=== PATIENT | male | born 1940 | race Caucasian/White ===

== ENCOUNTER 2016-05-13 12:30 | Inpatient (IN) ==
[2016-05-13] MEDS ORDERED: 0.9 % SODIUM CHLORIDE 1,000 ML IV ONE (12:59)
[2016-05-13] MEDS: LABETALOL 5 MG/ML ML IV ONE ×2 (13:06→13:08)
[2016-05-13] MEDS ORDERED: LABETALOL HCL 20 MG/4 ML SYRINGE IV ONE (13:12)
--- NOTE | 2016-05-13 13:26 | XRay Report ---
CLINICAL INFORMATION: Dyspnea TECHNIQUE: Semiupright AP portable chest x-ray COMPARISON: Previous chest x-ray dated 03/29/2015 FINDINGS: No change in left transvenous pacemaker lead. Inspiration is suboptimal. There is cardiomegaly. Vascularity is prominent without definite pulmonary edema or focal infiltrate. Upright PA and lateral chest x-ray with better inspiration is recommended when clinically appropriate. IMPRESSION: 1. Cardiomegaly 2. No focal parenchymal infiltrates. No pulmonary edema. Interpreted and Authenticated by: Favian Cuenca 05/13/16
[2016-05-13 13:36] LABS: Basophils # (Auto) 0.1 K/mcL (0.0-0.3); Basophils % (Auto) 0.4 % (0.0-2.0); Eosinophils # (Auto) 0 K/mcL (0.0-0.7); Eosinophils % (Auto) 0.2 % (0.0-7.0); Granulocytes % (Auto) 90.4 % (38.0-78.0); Lymphocytes # (Auto) 0.6 K/mcL (1.5-4.8); Lymphocytes % (Auto) 4.5 % (15.5-49.0); Mean Cell Volume 87.2 fL (80.0-100.0); Mean Corpuscular HGB Conc 33.1 g/dL (31.0-36.0); Mean Corpuscular Hemoglobin 28.8 pg (26.0-34.0); Monocytes # (Auto) 0.6 K/mcL (0.1-0.9); Monocytes % (Auto) 4.5 % (1.0-9.0); Platelet Count 203 K/mcL (140-440); RBC 5.55 M/mcL (4.50-5.90); Red Cell Distribution Width 14.4 % (11.5-14.5)
[2016-05-13 13:38] LABS: Appearance,Urine CLEAR; Bacteria,Urine 0 /hpf (0); Bilirubin,Urine NEG (NEG); Color,Urine STRAW; Glucose,Urine (UA) NEGATIVE (NEG); Leukocyte Esterase,Urine NEG /uL (NEG); Mucus,Urine FEW /hpf (0); Nitrate,Urine NEG (NEG); Protein,Urine 30 mg/dL (NEG); Urine Blood 0.03 mg/dL (<0.03); Urine RBC 4 /hpf (0-1); Urine Squamous Epithelial Cell 0 /hpf (0-4); Urine WBC 1 /hpf (0-4); Urobilinogen,Urine NEG (NEG)
[2016-05-13 13:52] LABS: ALT/SGPT 24 U/l (0-40); Albumin 4.5 gm/dL (3.2-5.2); Albumin/Globulin Ratio 1.3 (1.0-2.3); Alkaline Phosphatase 80 U/L (39-117); Blood Urea Nitrogen 14 mg/dl (8-23)
[2016-05-13] MEDS ORDERED: LABETALOL 5 MG/ML ML IV ONE (14:30)
[2016-05-13] MEDS ORDERED: DILTIAZEM 25 MG/5 ML VIAL IV ONE (14:46)
[2016-05-13] MEDS ORDERED: traMADol 50 MG TABLET PO PRN ×2 (16:21→17:36)
[2016-05-13] MEDS ORDERED: HYDROCODONE/APAP 7.5/325MG TABLET PO PRN ×3 (16:21→18:23)
--- NOTE | 2016-05-13 16:24 | Internal Med History&Physical ---
Medical - H&P: HPI Patient information: Note initiated : 05/13/16 at 4:24 pm Service Date, if different from initiated Date: [] Patient: Jessica Lemus a 75 y/o M admitted on for Weakness, vomiting. Chief Complaint: [] History of present illness: Mr. Lemus is a 75 year old male with a history of sleep apnea, and possible COPD, as well as diabetes and atrial fibrillation. He is brought here today by his son and daughter, who note that he has not been doing well for the last couple of days. His daughter reports that he's been complaining of dizziness and weakness for the last couple of days. He has felt feverish. Today he was able to get out of bed and get to a chair, but then was too weak to get out of the chair. It took 2 of them to try to lift him and practically drag him out of the car to bring him here. He has had decreased oral intake for the last couple of days, and did vomit just once this morning. He has been very somnolent today, and is not giving a very reliable history. ER evaluation did show a white blood cell count of 13,000 and mildly elevated blood glucose. Influenza screen is negative. He is febrile and tachycardic, and tachypneic, and does meet SIRS criteria. The patient is quite drowsy, but does wake up enough to answer questions, and then falls back asleep. He believes he has had a fever and chills, and whole body aching. He is not sure if he has been dizzy that has definitely been feeling weak. He otherwise denies headaches, and new eye or ear symptoms, sore throat. He has had a bit of a cough for a day or 2 and it sounds like that is nonproductive. He thinks he may be mildly short of breath, but is unable to clarify whether that is more than his usual shortness of breath. His daughter thinks he was recently diagnosed with COPD, but neither of them are sure. He does use some kind of inhaler at home, which we believe is Symbicort. He denies chest pain or palpitations, abdominal pain. He had nausea and vomiting once, and not since then. He denies constipation or diarrhea, or dysuria. Medical History Dilated aortic root (Chronic) Constipation (Acute) Hypertension (Chronic) Compression fracture of body of thoracic vertebra (Acute) Tennis elbow (Chronic) Lateral epicondyle Tachycardia (Chronic) Sleep apnea (Chronic) on CPAP Sick sinus syndrome (Chronic) (01/28/2014 Dr Tan) Right bundle branch block (Chronic) Obesity (Chronic) Joint pain (Chronic) Right ankle Hypertension, essential (Chronic) not well controlled, labile on current meds. Change and review in one month Intestinal hernia (Chronic) Abdominal hernia Hematuria (Chronic) Exostosis (Chronic) Right, bone spur Diabetes mellitus, type II (Chronic) History of colonic polyps (Chronic) Cardiomegaly (Chronic) Calculus of bile duct without cholangitis or cholecystitis with obstruction ( Chronic) Bradycardia (Chronic) Atrial fibrillation (Chronic 05/25/11) Acute appendicitis (Resolved) Given Zosyn, scheduled for OR Acute delirium (Resolved) Acute renal failure (Resolved) Ileus following gastrointestinal surgery (Resolved) Rotator cuff sprain (Resolved) Sprains/strains Sepsis (Resolved) Surgical History History of appendectomy (Resolved 12/15/14) History of cardioversion (Resolved) History of hernia repair (Resolved) History of orthopedic surgery (Resolved) Right leg fracture repair History of permanent cardiac pacemaker placement (Resolved 01/02/13) Permanent pacemaker implant, ventricular lead implant History of repair of right rotator cuff (Resolved) History of shoulder surgery (Resolved) Left History of surgery (Resolved) Right ankle Medication List budesonide 180 mcg/actuation 360 mcg (2 x 180 mcg/actuation) Inhalation BID carvedilol the dose appears to be 12.5 twice a day [CPAP machine ] diltiazem CD 240 mg PO BID patient's reports this is just once a day furosemide PO 90 days hydrochlorothiazide 25 mg (2 x 12.5 mg) PO QDAY patient's reports he no longer takes this, as it made him feel bad- hydrocodone-acetaminophen 7.5-325 mg 1 tab PO Q6H 30 days PRN levalbuterol HFA 45 mcg/actuation 45 mcg Inhalation Q4H PRN lisinopril 30 mg PO BID rivaroxaban 20 mg PO QDAY with evening meal; administer with evening meal tramadol 50 mg PO Q4H PRN Allergies/Adverse Reactions amiodarone Allergy Unknown Family History Unknown Diabetes mellitus Sister Parkinson's Disease, Onset Age: 64 Social History household members: spouse, other housing: house marital status: smoking status: Never smoker alcohol intake frequency: does not drink Medical - H&P: Meds Home Medications Medication Instructions Recorded Confirmed Type rivaroxaban 20 mg tablet 20 mg PO .COMPLEX tab 12/14/14 05/13/16 History Diltiazem HCl [Cartia Xt] 240 mg PO HS 12/15/14 05/13/16 History Lisinopril [Zestril] 30 mg PO BID 12/15/14 05/13/16 History carvedilol 12.5 mg tablet 12.5 mg PO DAILY 90 Days 10/21/15 05/13/16 History furosemide 20 mg tablet 20 mg PO DAILY 90 Days 10/21/15 05/13/16 History Acetaminophen [Tylenol] 1,000 mg PO Q4-6HP PRN 05/13/16 05/13/16 History Allergies Allergy/AdvReac Type Severity Reaction Status Date / Time amiodarone AdvReac Unknown Unknown Verified 05/13/16 12:33 Medical - H&P: Exam - Constitutional Vitals: Temp Pulse Resp BP Pulse Ox 100.1 F H 88 36 H 180/90 92 05/13/16 14:53 05/13/16 14:30 05/13/16 14:30 05/13/16 14:30 05/13/16 14:30 Exam: on exam, he is a well-developed well-nourished appearing elderly man, who mostly sleeps through the first part of the interview. Head: Normocephalic, atraumatic. Eyes: PERRLA, EOMI, anicteric. Ears: TMs and canals are clear. Pharynx: Mucosa somewhat dry. He wasn't able to open his mouth very wide, so posterior pharynx was hard to see. Neck:Appears supple, without lymphadenopathy, JVD, thyromegaly, bruits. Cardiac exam: Appears mostly regular, with normal S1 and S2, without murmurs, rubs, gallops. EKG, however,indicates A. fib. Lungs:There are soft crackles and wheezes at both bases, and lungs are fairly clear above. There is no accessory muscle use, although the patient is tachypneic occasionally. Abdomen; Is obese, but soft. There is a little bit of tenderness in the right upper quadrant area, but no guarding or rebound. Bowel sounds are normoactive. Extremities: Show some stasis dermatitis changes, but minimal edema. There is no cyanosis or clubbing. Neurologic:The patient is quite somnolent, but does arouse to verbal and physical stimulation. he is able to answer most questions appropriately, and is able to follow commands. Motor exam is grossly nonfocal. Medical - H&P: Reslt - Labs CBC & Chem 7: 05/13/16 13:01 05/13/16 13:00 Labs: Short CBC 05/13/16 Range/Units 13:01 WBC 13.2 H (4.5-11.0) K/mcL Hgb 16.0 (13.5-16.5) g/dL Hct 48.4 (41.0-55.0) % Plt Count 203 (140-440) K/mcL BMP 05/13/16 13:00 Sodium 136 Potassium 3.3 Chloride 98 Carbon Dioxide 23 BUN 14 Creatinine 0.9 Glucose 166 H Calcium 8.9 Liver Function 05/13/16 Range/Units 13:00 Total Bilirubin 1.1 H (0.0-1.0) mg/dL AST 25 (0-37) U/l ALT 24 (0-40) U/l Alkaline Phosphatase 80 (39-117) U/L Albumin 4.5 (3.2-5.2) gm/dL Urine 05/13/16 Range/Units 12:58 Urine Color Straw Urine Appearance Clear Urine pH 7.0 (5.0-9.0) Ur Specific [place] 1.010 (1.000-1.035) Urine Protein 30 A (NEG) mg/dL Urine Glucose (UA) Negative (NEG) mg/dL urinalysis shows a few red blood cells, but negative leukocyte esterase and negative nitrites. lactic acid is normal at 1.2 cBC differential shows 12,000 absolute neutrophil count, with depressed absolute lymphocyte count of 600 Chest x-ray shows suboptimal inspiration. There is some vascular prominence but no definite infiltrate. Although the ER M.D. felt that there may be some hazinessin the right lower lung douglas. ABG on room air: PH 7.45, CO2 of 37, PO2 of 61, O2 saturation 92% Medical - H&P: A/P (1) Fever Current visit: Yes Status: Acute (2) SIRS (systemic inflammatory response syndrome) Current visit: Yes Status: Acute (3) Atrial fibrillation Current visit: No Status: Chronic (4) Diabetes mellitus, type II Current visit: No Status: Chronic (5) Hypertension, essential Problem details: not well controlled, labile on current meds. Change and review in one month Current visit: No Status: Chronic (6) Sleep apnea Problem details: on CPAP Current visit: No Status: Chronic - Narrative A/P Narrative: #1. Infectious disease,SIRS syndrome, and actually does meet sepsis criteria, with suspected infection, fever,tachycardia, leukocytosis tachypnea and altered mental status. -Lung exam is abnormal, and could represent early pneumonia. We do not have any other source at this time. blood gas does indicate a mild respiratory alkalosis, with mild hypoxemia. -the patient has been admitted to telemetry for close observation. -Blood cultures have been obtained. Sputum culture is ordered. He'll be started on empiric antibiotics with Zithromax and Rocephin. add vancomycin for additional gram-positive coverage. -Just to be complete, I will also order d-dimer, BNP, troponin, EKG, as the cause for his hypoxemia is not certain. -IV fluid resuscitation. -Bronchodilators oxygen, pulmonary toilet. #2. History of sleep apnea. -Continue CPAP #3. Type 2 diabetes. -cover with sliding scale insulin. #4. Recent history of compression fracture. Continue tramadol, plus other when necessary pain medications. #5. Cardiac. -History of chronic atrial fibrillation.he is maintained on rivaroxaban. -his primary care physician's notes indicate that he had a cardiac workup recently, and no cause was found for his dyspnea. He apparently does not have CHF but is maintained on hydrochlorothiazide, Lasix, Coreg, lisinopril, diltiazem. #6.pulmonary.-Patient apparently has been compared complaining of sensation of dyspnea for the last year or so. Cardiac workup was unrevealing. he had a plain chest CT in August 2015 that was essentially benign. He did have CT angiogram back in March 2015, that was also fairly unrevealing. There was a small lung nodule, that was stable at 6 month follow-up. -he also has a history of a dilated aortic root. Given his unexplained top hypoxemia and subjective dyspnea, I think I may do another CT angiogram, to try to confirm or rule out pneumonia as well as PE. #7. CODE STATUS: His daughter did call his , who is his POA. The indicate he wishes a DNR status. #8. DVT prophylaxis: rivaroxaban should cover this. #9. Neurologic. -The patientis somnolent and somewhat confused. He likely has a medical delirium. We will have speech evaluate him just to be sure he has a safe swallow. his visit took approximately 75 minutes, to review the patient's records, interview and examine him, review his history and then plan of care with his daughter, and write orders.
[2016-05-13] MEDS ORDERED: RIVAROXABAN 20 MG TABLET PO SCH ×2 (16:30→21:00)
[2016-05-13] MEDS: INSULIN LISPRO 1 UNIT/0.01 ML UNIT SQ SCH ×2 (17:30→21:50)
[2016-05-13] MEDS ORDERED: ONDANSETRON 4 MG/2 ML VIAL IV PRN (17:36)
[2016-05-13] MEDS ORDERED: DEXTROSE 50% 50 ML VIAL IV PRN (17:36)
[2016-05-13] MEDS ORDERED: NALOXONE HCL 0.4 MG/ML VIAL IV PRN (17:36)
[2016-05-13] MEDS ORDERED: ALBUTEROL SULFATE 2.5 MG/3 ML NEBULIZER NEB PRN (17:36)
[2016-05-13] MEDS ORDERED: POTASSIUM CHLORIDE 20 MEQ/10 ML VIAL IV ONE (18:31)
[2016-05-13] MEDS ORDERED: POTASSIUM ACETATE 2 MEQ/ML ML IV ONE (18:31)
[2016-05-13] MEDS ORDERED: cefTRIAXone 1 GM VIAL ONE (18:32)
[2016-05-13] MEDS ORDERED: VANCOMYCIN PER PHARMACY IV ONE (19:01)
[2016-05-13] MEDS: AZITHROMYCIN 500 MG in DEXTROSE 5% IN WATER 250 ML IV SCH (19:45)
[2016-05-13] MEDS: cefTRIAXone 1 GM in DEXTROSE 5% IN WATER 50 ML IV SCH (19:51)
[2016-05-13] MEDS: IPRATROPIUM/ALBUTEROL 3 ML AMPUL.NEB NEB SCH (19:55)
[2016-05-13] MEDS: POTASSIUM CHLORIDE 30 MEQ in 0.45 % SODIUM CHLORIDE 1,000 ML IV SCH (20:08)
[2016-05-13] MEDS ORDERED: LISINOPRIL 30 MG PO SCH (21:00)
[2016-05-13] MEDS ORDERED: VANCOMYCIN 1,500 MG in 0.9 % SODIUM CHLORIDE 500 ML IV ONE (21:00)
[2016-05-13] MEDS ORDERED: DILTIAZEM 240 MG CAP.XL.24H PO SCH ×2 (21:00)
[2016-05-13] MEDS: ACETAMINOPHEN 325 MG TABLET PO PRN (21:45)
[2016-05-13] MEDS: LISINOPRIL 10 MG TABLET PO SCH (21:45)
[2016-05-13] MEDS ORDERED: VANCOMYCIN 500 MG VIAL ONE (22:00)
[2016-05-14] MEDS: IPRATROPIUM/ALBUTEROL 3 ML AMPUL.NEB NEB SCH ×4 (01:16→19:31)
[2016-05-14] MEDS: POTASSIUM CHLORIDE 30 MEQ in 0.45 % SODIUM CHLORIDE 1,000 ML IV SCH ×3 (04:15→19:27)
[2016-05-14] MEDS: ACETAMINOPHEN 325 MG TABLET PO PRN (04:29)
[2016-05-14 05:42] LABS: Basophils # (Auto) 0 K/mcL (0.0-0.3); Basophils % (Auto) 0.1 % (0.0-2.0); Eosinophils # (Auto) 0 K/mcL (0.0-0.7); Eosinophils % (Auto) 0 % (0.0-7.0); Granulocytes % (Auto) 90.1 % (38.0-78.0); Lymphocytes # (Auto) 0.8 K/mcL (1.5-4.8); Mean Cell Volume 87.9 fL (80.0-100.0); Mean Corpuscular HGB Conc 33.4 g/dL (31.0-36.0); Mean Corpuscular Hemoglobin 29.3 pg (26.0-34.0); Monocytes # (Auto) 0.5 K/mcL (0.1-0.9); Monocytes % (Auto) 3.8 % (1.0-9.0); Platelet Count 193 K/mcL (140-440); RBC 4.96 M/mcL (4.50-5.90); Red Cell Distribution Width 14.6 % (11.5-14.5)
[2016-05-14 06:39] LABS: ALT/SGPT 18 U/l (0-40); Albumin 3.8 gm/dL (3.2-5.2); Albumin/Globulin Ratio 1.3 (1.0-2.3); Alkaline Phosphatase 86 U/L (39-117); Bilirubin,Direct 0.2 mg/dL (0.0-0.3); Blood Urea Nitrogen 14 mg/dl (8-23); Gamma Glutamyl Transpeptidase 44 U/L (8-61); Phosphorous 2.4 mg/dL (2.7-4.5); Uric Acid 4.6 mg/dL (2.5-8.0)
[2016-05-14] MEDS ORDERED: POTASSIUM CHLORIDE 20 MEQ/10 ML VIAL IV ONE (07:05)
--- NOTE | 2016-05-14 07:59 | Emergency Department Note ---
Weakness HPI - General Chief complaint: Weakness Stated complaint: Weakness, vomiting Time Seen by Provider: 05/13/16 12:53 Source: family Mode of arrival: wheelchair Limitations: no limitations - History of Present Illness HPI Narrative: The patient is a 75-year-old male who presents today with his daughter and son with complaint of weakness. He lives alone with his and the details of the last couple days are not clear but he reportedly hasn't been feeling well. There was some concern about dizziness for the last couple of days. Today he got up and out of bed and sinus chair but then was unable to move from there. He did vomit once today approximately 30 Rucker of bilious emesis. His temperature at home was 100.5 Fahrenheit. Endorses feeling weak does not endorsing any other kind of pain. Has had nothing to eat this morning. Mild cough the last couple of days. He has a history of hypertension and is on furosemide, carvedilol, lisinopril and diltiazem. He also has chronic atrial fibrillation and is on the diltiazem for rate control and Xarelto for anticoagulation. He does have sleep apnea and has a CPAP machine at home. He is a type II diabetic but not on insulin. They recently thought he had COPD and he has a prescription for budesonideformoterol. MD Complaint: generalized weakness Onset (ago): day(s) (2-3) Duration: constant Location: generalized - Related Data Home Medications Medication Instructions Recorded Confirmed rivaroxaban 20 mg tablet 20 mg PO .COMPLEX tab 12/14/14 05/13/16 Diltiazem HCl [Cartia Xt] 240 mg PO HS 12/15/14 05/13/16 Lisinopril [Zestril] 30 mg PO BID 12/15/14 05/13/16 carvedilol 12.5 mg tablet 12.5 mg PO DAILY 90 Days 10/21/15 05/13/16 furosemide 20 mg tablet 20 mg PO DAILY 90 Days 10/21/15 05/13/16 Acetaminophen [Tylenol] 1,000 mg PO Q4-6HP PRN 05/13/16 05/13/16 CPAP machine 12 cm HS 05/14/16 05/14/16 Previous Rx's Medication Instructions Recorded hydrochlorothiazide 12.5 mg capsule 25 mg PO QDAY #90 cap 10/01/15 tramadol 50 mg tablet 50 mg PO Q4H PRN #60 tab 12/08/15 budesonide-formoterol HFA 160 2 inh INHALATION Q12H #10.2 g 04/12/16 mcg-4.5 mcg/actuation aerosol inhaler Allergies Allergy/AdvReac Type Severity Reaction Status Date / Time amiodarone AdvReac Unknown Unknown Verified 05/13/16 12:33 Review of Systems All systems ED: reviewed and negative except as stated. Past Medical History - Past Medical History Attestation: Yes: The following information was validated with the patient. Medical history: Reports: atrial fibrillation, CVA Physical Exam - General Limitations: no limitations General appearance: other (not alert, very sleepy and has to be shaken to wake up. After he wakes, he quickly dozes back off) - Head Head exam: atraumatic, normocephalic - Neck Neck exam: Present: normal inspection - Chest Chest inspection: Present: normal inspection - Respiratory Respiratory exam: Present: other (bilatearl inspiratory rhonchi, no wheezes appreciated, shallow breaths) - Cardiovascular Cardiovascular exam: Present: normal rhythm, tachycardia - Abdominal Exam Abdominal exam: Present: soft, normal bowel sounds - Extremities Exam Extremities exam: Present: other (venous stasis bilateral lower extremity) - Neurological Exam Neurological exam: Present: other (not alert - follows a couple step commands but then falls back asleep) - Psychiatric Psychiatric exam: Present: other (difficult to assess mood as not responding normally) Course Vital Signs Temperature 100.5 F H 05/13/16 12:33 Temperature 99.1 F 05/13/16 17:36 Pulse Rate 81 05/14/16 02:00 Respiratory Rate 24 05/14/16 02:00 Blood Pressure 148/92 05/14/16 02:00 Pulse Oximetry (%) 95 05/14/16 02:00 Weakness - MDM Narrative Medical decision making narrative: The patient presented with a couple day history of weakness that has been rapidly progressed. He was minimally responsive when I saw him. Lab work was remarkable for mildly elevated white count. He was tachycardic and febrile here. He met Sirs criteria that we did not have a clear source for his infection. Chest x-ray was remarkable for what appeared to be COPD but no consolidation was appreciated. I discussed with the on-call hospitalist who agreed to evaluate the patient and then after evaluation graciously agreed to admit the patient. - Lab Data Lab results reviewed: Yes I reviewed the patient's lab results. Result diagrams: 05/14/16 04:06 05/14/16 04:06 Lab Results 05/13/16 05/13/16 05/13/16 Range/Units 12:58 13:00 13:01 WBC 13.2 H (4.5-11.0) K/mcL RBC 5.55 (4.50-5.90) M/mcL Hgb 16.0 (13.5-16.5) g/dL Hct 48.4 (41.0-55.0) % MCV 87.2 (80.0-100.0) fL MCH 28.8 (26.0-34.0) pg MCHC 33.1 (31.0-36.0) g/dL RDW 14.4 (11.5-14.5) % Plt Count 203 (140-440) K/mcL MPV 9.1 (7.4-10.4) fL Gran % 90.4 H (38.0-78.0) % Lymph % (Auto) 4.5 L (15.5-49.0) % [place] % (Auto) 4.5 (1.0-9.0) % Eos % (Auto) 0.2 (0.0-7.0) % Baso % (Auto) 0.4 (0.0-2.0) % Gran # 12.0 H (1.8-8.0) K/mcL Lymph # 0.6 L (1.5-4.8) K/mcL [place] # 0.6 (0.1-0.9) K/mcL Eos # 0 (0.0-0.7) K/mcL Baso # 0.1 (0.0-0.3) K/mcL VBG Lactic Acid (0.5-2.2) mmol/L Sodium 136 (133-145) mmol/L Potassium 3.3 (3.3-5.1) mmol/L Chloride 98 (96-108) mmol/L Carbon Dioxide 23 (22-30) mmol/L Anion Gap 15.0 (8-16) BUN 14 (8-23) mg/dl Creatinine 0.9 (0.7-1.2) mg/dl GFR Calculation 82 Glucose 166 H (70-105) mg/dL Calcium 8.9 (8.6-10.4) mg/dl Total Bilirubin 1.1 H (0.0-1.0) mg/dL AST 25 (0-37) U/l ALT 24 (0-40) U/l Alkaline Phosphatase 80 (39-117) U/L Total Protein 8.0 (5.9-8.4) gm/dL Albumin 4.5 (3.2-5.2) gm/dL Globulin 3.5 (2.2-3.7) gm/dL Albumin/Globulin Ratio 1.3 (1.0-2.3) Urine Color Straw Urine Appearance Clear Urine pH 7.0 (5.0-9.0) Ur Specific [place] 1.010 (1.000-1.035) Urine Protein 30 A (NEG) mg/dL Urine Glucose (UA) Negative (NEG) mg/dL Urine Ketones Neg (NEG) mg/dL Urine Occult Blood 0.03 A (<0.03) mg/dL Urine Nitrate Neg (NEG) Urine Bilirubin Neg (NEG) mg/dL Urine Urobilinogen Neg (NEG) mg/dL Ur Leukocyte Esterase Neg (NEG) /uL Urine RBC 4 H (0-1) /hpf Urine WBC 1 (0-4) /hpf Ur Squamous Epith Cells 0 (0-4) /hpf Urine Bacteria 0 (0) /hpf Urine Mucus Few (0) /hpf Ur Culture Indicated? No 05/13/16 Range/Units 14:59 WBC (4.5-11.0) K/mcL RBC (4.50-5.90) M/mcL Hgb (13.5-16.5) g/dL Hct (41.0-55.0) % MCV (80.0-100.0) fL MCH (26.0-34.0) pg MCHC (31.0-36.0) g/dL RDW (11.5-14.5) % Plt Count (140-440) K/mcL MPV (7.4-10.4) fL Gran % (38.0-78.0) % Lymph % (Auto) (15.5-49.0) % [place] % (Auto) (1.0-9.0) % Eos % (Auto) (0.0-7.0) % Baso % (Auto) (0.0-2.0) % Gran # (1.8-8.0) K/mcL Lymph # (1.5-4.8) K/mcL [place] # (0.1-0.9) K/mcL Eos # (0.0-0.7) K/mcL Baso # (0.0-0.3) K/mcL VBG Lactic Acid 1.2 (0.5-2.2) mmol/L Sodium (133-145) mmol/L Potassium (3.3-5.1) mmol/L Chloride (96-108) mmol/L Carbon Dioxide (22-30) mmol/L Anion Gap (8-16) BUN (8-23) mg/dl Creatinine (0.7-1.2) mg/dl GFR Calculation Glucose (70-105) mg/dL Calcium (8.6-10.4) mg/dl Total Bilirubin (0.0-1.0) mg/dL AST (0-37) U/l ALT (0-40) U/l Alkaline Phosphatase (39-117) U/L Total Protein (5.9-8.4) gm/dL Albumin (3.2-5.2) gm/dL Globulin (2.2-3.7) gm/dL Albumin/Globulin Ratio (1.0-2.3) Urine Color Urine Appearance Urine pH (5.0-9.0) Ur Specific [place] (1.000-1.035) Urine Protein (NEG) mg/dL Urine Glucose (UA) (NEG) mg/dL Urine Ketones (NEG) mg/dL Urine Occult Blood (<0.03) mg/dL Urine Nitrate (NEG) Urine Bilirubin (NEG) mg/dL Urine Urobilinogen (NEG) mg/dL Ur Leukocyte Esterase (NEG) /uL Urine RBC (0-1) /hpf Urine WBC (0-4) /hpf Ur Squamous Epith Cells (0-4) /hpf Urine Bacteria (0) /hpf Urine Mucus (0) /hpf Ur Culture Indicated? - Radiology Data Radiology results reviewed: Yes I reviewed the patient's radiology results. Disposition Clinical Impression: SIRS (systemic inflammatory response syndrome) Disposition: Xfer As Inpt ([facility]) Condition: Fair
[2016-05-14] MEDS: INSULIN LISPRO 1 UNIT/0.01 ML UNIT SQ SCH ×4 (08:21→20:20)
[2016-05-14] MEDS: VANCOMYCIN 1,500 MG in 0.9 % SODIUM CHLORIDE 500 ML IV SCH ×2 (08:31→20:21)
[2016-05-14] MEDS: LISINOPRIL 10 MG TABLET PO SCH ×2 (08:50→20:21)
[2016-05-14] MEDS: CARVEDILOL 12.5 MG TABLET PO SCH ×2 (08:50→20:21)
[2016-05-14] MEDS: FUROSEMIDE 20 MG TABLET PO SCH (08:50)
[2016-05-14] MEDS: HYDROCHLOROTHIAZIDE 12.5 MG CAPSULE PO SCH (08:50)
[2016-05-14] MEDS ORDERED: HYDROCHLOROTHIAZIDE 12.5 MG CAPSULE PO SCH (09:00)
[2016-05-14] MEDS ORDERED: FUROSEMIDE 20 MG TABLET PO SCH (09:00)
[2016-05-14] MEDS ORDERED: CARVEDILOL 12.5 MG TABLET PO SCH ×2 (09:00)
[2016-05-14] MEDS: AZITHROMYCIN 500 MG in DEXTROSE 5% IN WATER 250 ML IV SCH (12:10)
[2016-05-14] MEDS: 0.9 % SODIUM CHLORIDE 10 ML SYRINGE IV SCH ×2 (13:25→20:22)
[2016-05-14] MEDS: cefTRIAXone 1 GM in DEXTROSE 5% IN WATER 50 ML IV SCH (13:25)
--- NOTE | 2016-05-14 13:30 | Internal Med Progress Note ---
Medical - PN: Subj Patient information: Note initiated : 05/14/16 at 1:30 pm Service Date, if different from initiated Date: [] Patient: Jessica Lemus a 75 y/o M admitted on 05/13/16 for Weakness, vomiting. Chief Complaint: [] Interval history: Chris 2016:History of present illness: Mr. Lemus is a 75 year old male with a history of sleep apnea, and possible COPD, as well as diabetes and atrial fibrillation. He is brought here today by his son and daughter, who note that he has not been doing well for the last couple of days. His daughter reports that he's been complaining of dizziness and weakness for the last couple of days. He has felt feverish. Today he was able to get out of bed and get to a chair, but then was too weak to get out of the chair. It took 2 of them to try to lift him and practically drag him out of the car to bring him here. He has had decreased oral intake for the last couple of days, and did vomit just once this morning. He has been very somnolent today, and is not giving a very reliable history. ER evaluation did show a white blood cell count of 13,000 and mildly elevated blood glucose. Influenza screen is negative. He is febrile and tachycardic, and tachypneic, and does meet SIRS criteria. The patient is quite drowsy, but does wake up enough to answer questions, and then falls back asleep. He believes he has had a fever and chills, and whole body aching. He is not sure if he has been dizzy that has definitely been feeling weak. He otherwise denies headaches, and new eye or ear symptoms, sore throat. He has had a bit of a cough for a day or 2 and it sounds like that is nonproductive. He thinks he may be mildly short of breath, but is unable to clarify whether that is more than his usual shortness of breath. His daughter thinks he was recently diagnosed with COPD, but neither of them are sure. He does use some kind of inhaler at home, which we believe is Symbicort. He denies chest pain or palpitations, abdominal pain. He had nausea and vomiting once, and not since then. He denies constipation or diarrhea, or dysuria. May 14: this morning, the patient is more awake and alert. He is able to answer questions. His and daughter are in the room with him. He notes he is still feeling quite weak. His nurse notes she did complain of a headache and feeling a bit dizzy during the night last night, but that has resolved this morning. He notes he's had a mild cough for about 2 months but that seems fairly unchanged. He has had shortness of breath for about one year now. Outpatient workup so far has only revealed very mild or borderline COPD. He does think that the Symbicort inhaler might be helping somewhat. He notes he was actually feeling really great 2 days ago, and then suddenly just felt very fatigued. He currently denies subjective fever or chills, headache, sore throat. His cough is nonproductive. He has mild shortness of breath, even with talking, and his says this has been going on for quite a while at home. He denies chest pain or palpitations. He does report that the right upper side of his abdomen has been sore for a while now, although he is not definite on the time. He otherwise denies nausea or vomiting, diarrhea or constipation or bright red blood per rectum. He denies dysuria. D-dimer yesterday was negative.troponin was also negative. BNP was elevated at 1713. - Constitutional Vitals: Vital Signs Temp Pulse Resp BP Pulse Ox 98.1 F 69 26 H 157/97 98 05/14/16 12:20 05/14/16 08:00 05/14/16 12:20 05/14/16 12:20 05/14/16 12:20 Period Temp Pulse Resp BP Sys/Gale Pulse Ox Last 24 Hr 98.1 F-99.1 F 69-98 20-26 141-199/69-100 95-98 Intake and Output 05/13/16 05/14/16 05/14/16 21:59 05:59 13:59 Intake Total 250 / 250 850 / 850 Output Total 452 / 452 Balance - 249 / 249 398 / 398 Weight 264 lb 1.6 oz Intake & Output: Intake & Output 05/13/16 05/14/16 05/14/16 21:59 05:59 13:59 Intake Total 250 / 250 850 / 850 Output Total 452 / 452 Balance - 249 / 249 398 / 398 Weight 264 lb 1.6 oz Intake: IV 250 / 250 500 / 500 Dextrose 5% in Water 250 250 / 250 ml @ 250 mls/hr IV DAILY [facility] with Zithromax 500 mg Rx#:[id number] Sodium Chloride 0.9% 500 500 / 500 ml @ 333.3 mls/hr IV Q12 [facility] with Vancomycin 1,500 mg Rx#:[id number] Oral 350 / 350 Output: Void Amount 451 / 451 # of times incontinent of urine Other: Meal Breakfast Percent of Meal Consumed 50% Feeding Ability Assist with Tray Set Up # Voids 100 150 Exam: on exam, he is awake and alert. Neck is supple without obvious JVD. Cardiac exam showswhat appears to be irregular rhythm, although it is slightly irregular on the monitor. Lungs:Essentially clear to auscultation. Abdomen:There is very mild discomfort in the right upper quadrant with deep palpation, otherwise abdomen is soft and nontender with normal bowel sounds. Extremities: Show no significant edema. Neurologic exam: Is now grossly nonfocal.he is alert and oriented. Medical - PN: Obj Da - Labs CBC & Chem 7: 05/14/16 04:06 05/14/16 04:06 Labs: Abnormal Lab Results 05/14/16 05/14/16 05/13/16 04:06 04:06 19:15 WBC 13.8 H RDW 14.6 H Gran % 90.1 H Lymph % (Auto) 6.0 L Gran # 12.4 H Lymph # 0.8 L Glucose 123 H Calcium 8.3 L Phosphorus 2.4 L Total Bilirubin 1.3 H Lactate Dehydrogenase 348 H NT-Pro-B Natriuret Pep 1713.0 H 05/13: -d-dimer is normal. troponin is normal. -urinalysis shows a few red blood cells, but negative leukocyte esterase and negative nitrites. -lactic acid is normal at 1.2 -cBC differential shows 12,000 absolute neutrophil count, with depressed absolute lymphocyte count of 600 -Chest x-ray shows suboptimal inspiration. There is some vascular prominence but no definite infiltrate. Although the ER M.D. felt that there may be some hazinessin the right lower lung douglas. -ABG on room air: PH 7.45, CO2 of 37, PO2 of 61, O2 saturation 92% Meds: Medications Acetaminophen (Tylenol) 650 mg PO Q6HP PRN PRN Reason: PAIN/FEVER > 101 Last Admin: 05/14/16 04:29 Dose: 650 mg Albuterol Sulfate (Ventolin) 2.5 mg NEB Q2HP PRN PRN Reason: Shortness Of Breath Or Wheezing Albuterol/Ipratropium (Duoneb) 3 ml NEB Q6HRT [facility] Last Admin: 05/14/16 13:27 Dose: 3 ml Carvedilol (Coreg) 12.5 mg PO BID [facility] Last Admin: 05/14/16 08:50 Dose: 12.5 mg Dextrose (Dextrose 50%) 0 ml IV UD PRN PRN Reason: Hypoglycemia Diagnostic Test (Pha) (Accu-Chek) 1 each FS ACHS [facility] Last Admin: 05/14/16 12:14 Dose: 1 each Diltiazem HCl (Cardizem Cd) 240 mg PO QHS [facility] Furosemide (Lasix) 20 mg PO DAILY [facility] Last Admin: 05/14/16 08:50 Dose: 20 mg Hydrochlorothiazide (Oretic) 25 mg PO QDAY [facility] Last Admin: 05/14/16 08:50 Dose: 25 mg Azithromycin 500 mg/ Dextrose 250 mls @ 250 mls/hr IV DAILY [facility] Stop: 05/15/16 09:59 Last Admin: 05/14/16 12:10 Dose: 250 mls/hr Potassium Chloride 30 meq/ (Sodium Chloride) 1,015 mls @ 100 mls/hr IV .Q10H9M [facility] Last Admin: 05/14/16 07:00 Dose: 100 mls/hr Ceftriaxone Sodium 1 gm/ (Dextrose) 50 mls @ 100 mls/hr IV DAILY [facility] Last Admin: 05/13/16 19:51 Dose: Not Given Vancomycin HCl 1,500 mg/ (Sodium Chloride) 500 mls @ 333.3 mls/hr IV Q12 [facility] Last Infusion: 05/14/16 10:45 Dose: Infused Insulin Human Lispro (Humalog) 0 unit SQ ACHS [facility] PRN Reason: Protocol Last Admin: 05/14/16 12:14 Dose: Not Given Lisinopril (Zestril) 30 mg PO BID [facility] Last Admin: 05/14/16 08:50 Dose: 30 mg Morphine Sulfate (Morphine) 1 mg IV Q2H PRN PRN Reason: Pain Naloxone HCl (Narcan) 0.1 mg IV Q2MIN PRN PRN Reason: Opiate Reversal Ondansetron HCl (Zofran) 4 mg IV Q4HP PRN PRN Reason: Nausea And Vomiting Rivaroxaban (Xarelto) 20 mg PO QPMCC [facility] Tramadol HCl (Ultram) 50 mg PO Q4HP PRN PRN Reason: For breakthrough pain Medical - PN: A/P - Time Spent With Patient Total time spent is greater than 50% in coordination of care (as documented) at patient's floor/unit and/or counseling patient: (1) Fever Status: Acute Current Visit: Yes (2) SIRS (systemic inflammatory response syndrome) Status: Acute Current Visit: Yes (3) Atrial fibrillation Status: Chronic Current Visit: No (4) Diabetes mellitus, type II Status: Chronic Current Visit: No (5) Hypertension, essential Problem details: not well controlled, labile on current meds. Change and review in one month Status: Chronic Current Visit: No (6) Sleep apnea Problem details: on CPAP Status: Chronic Current Visit: No - Narrative A/P Narrative: #1. Infectious disease,the patient presents with signs and symptoms of sepsis. -Lung exam is abnormal, and could represent early pneumonia. We do not have any other source at this time. blood gas does indicate a mild respiratory alkalosis, with mild hypoxemia. -blood cultures are negative so far. The patient seems to be responding to treatment with Zithromax, Rocephin, vancomycin. -continue IV fluid resuscitation,Bronchodilators oxygen, pulmonary toilet. -the etiology of his mild hypoxemia is unclear. I have ordered a CT scan of his chest for today, to see if there is any obvious source. BNP is elevated, but his primary care doctor's notes indicate that the patient has had previous cardiac workup. I would imagine that he's had an echocardiogram, but we will need to try to verify that tomorrow when his doctor's office is open. -cause of his septic presentation is still uncertain. Given that he also has some mild abdominal discomfort, we will also obtain a CT scan of his abdomen today. This was reviewed with the patient and his family, and they are in agreement. They do report he has a previous history of both appendectomy and cholecystectomy. -the patient also has a pacemaker in place, which could serve as a possible nidus of infection. #2. History of sleep apnea. -Continue CPAP #3. Type 2 diabetes. -cover with sliding scale insulin. #4. Recent history of compression fracture. Continue tramadol, plus other when necessary pain medications.the patient did have kyphoplasty about one year ago. #5. Cardiac. -History of chronic atrial fibrillation.he is maintained on rivaroxaban. -his primary care physician's notes indicate that he had a cardiac workup recently, and no cause was found for his dyspnea. He apparently does not have CHF but is maintained on hydrochlorothiazide, Lasix, Coreg, lisinopril, diltiazem. #6.pulmonary.-Patient apparently has been compared complaining of sensation of dyspnea for the last year or so. Cardiac workup was unrevealing. he had a plain chest CT in August 2015 that was essentially benign. He did have CT angiogram back in March 2015, that was also fairly unrevealing. There was a small lung nodule, that was stable at 6 month follow-up. -he also has a history of a dilated aortic root. Given his unexplained top hypoxemia and subjective dyspnea, I think I may do another CT angiogram, to try to confirm or rule out pneumonia as well as PE. -continued workup as noted above. #7. CODE STATUS: His daughter did call his , who is his POA. The indicate he wishes a DNR status. #8. DVT prophylaxis: rivaroxaban should cover this. #9. Neurologic. -mental status appears to be back to baseline today. approximately 37 minutes has been spent some part today, reviewing patient's chest results,interviewing and examining him, reviewing test results and plan of care with family and nursing staff, and writing orders. Medical - PN: Qual - VTE Deep Vein Thrombosis/Pulmonary Embolism Present on Admission: No
[2016-05-14] MEDS ORDERED: IOPAMIDOL 100 ML BOTTLE IV ONE (15:43)
--- NOTE | 2016-05-14 16:14 | Cat Scan Report ---
CLINICAL INFORMATION: Hypoxia. Fever. Right lower quadrant pain. Right upper quadrant pain. TECHNIQUE: Axial images through the chest, abdomen, pelvis. Sagittally and coronally reformatted images. 80 mL nonionic contrast material injected. Oral contrast material was given. COMPARISON: Previous chest CT scans dated 09/14/2015, 03/29/2015, 12/15/2014. Previous CT abdomen dated 07/10/2012 FINDINGS: Pulmonary parenchymal nodule which is based upon the right minor fissure. This measures 7 mm. Findings are stable since 12/15/2014. No other focal pulmonary parenchymal mass. Right lower lobe pulmonary parenchymal density consistent with atelectasis. Mild left lower lobe atelectasis. No significant pleural effusion. No pericardial effusion. There is cardiomegaly. There is biatrial cardiac enlargement. There is extensive calcified coronary artery disease. No pathologic hilar or mediastinal adenopathy. No axillary adenopathy. No supraclavicular adenopathy. Negative liver. No focal intrahepatic abnormality. No hepatic mass. There are surgical clips in the gallbladder fossa. Common bile duct measures 9 to 10 mm. No detectable choledocholithiasis. No intrahepatic bile duct dilatation. There is a low-density lesion in the body of the pancreas. This measures 2.4 cm. Appearance is unchanged since previous abdominal CT scan dated 07/10/2012. This is consistent with a benign cyst. Pancreas is otherwise negative. No new pancreatic mass. No peripancreatic abnormality. Spleen is negative. Normal enhancement splenic and portal veins. Negative adrenal glands. There is a left upper pole renal cyst. This measures 15 mm and is unchanged. No new renal abnormality. No hydronephrosis. No hydroureter. Small bowel is prominent. Ileum measures approximate 2.5 cm in maximum cross-sectional diameter. There is no contrast material within the colon. Small bowel is less prominent than on previous examination. Appearance is not consistent with acute calculus small bowel obstruction although chronic partial small bowel obstruction is possible. There is gas and fecal material within the colon, especially sigmoid colon and rectum. No free intraperitoneal fluid. No intra-abdominal abscess. No pneumoperitoneum. No biliary or portal venous gas. No pneumatosis. There is a T12 compression fracture. This is chronic. No other lumbar thoracic compression fractures. Sacrum and pelvis are negative. IMPRESSION: 1. Right middle lobe noncalcified nodule, stable since 12/15/2014. 2. Low-density lesion in the body of the pancreas. This is stable and considered benign. 3. Left upper pole renal cyst. 4. Prominent small bowel is essentially unchanged. No evidence for acute mechanical small bowel obstruction. Chronic partial obstruction is possible. 5. Prominent common bile duct. No intrahepatic bile duct dilatation. No detectable choledocholithiasis. Previous cholecystectomy. 6. No intra-abdominal abscess. No acute intra-abdominal abnormality. Interpreted and Authenticated by: Favian Cuenca 05/14/16
[2016-05-14] MEDS: RIVAROXABAN 20 MG TABLET PO SCH (18:40)
[2016-05-14] MEDS: DILTIAZEM 240 MG CAP.XL.24H PO SCH (20:21)
[2016-05-15] MEDS: IPRATROPIUM/ALBUTEROL 3 ML AMPUL.NEB NEB SCH ×4 (01:03→20:03)
[2016-05-15] MEDS: POTASSIUM CHLORIDE 30 MEQ in 0.45 % SODIUM CHLORIDE 1,000 ML IV SCH ×2 (05:39→22:59)
[2016-05-15] MEDS: INSULIN LISPRO 1 UNIT/0.01 ML UNIT SQ SCH ×4 (07:11→21:34)
[2016-05-15] MEDS: 0.9 % SODIUM CHLORIDE 10 ML SYRINGE IV SCH ×4 (07:13→21:31)
[2016-05-15 07:20] LABS: Basophils # (Auto) 0 K/mcL (0.0-0.3); Basophils % (Auto) 0.1 % (0.0-2.0); Eosinophils # (Auto) 0.1 K/mcL (0.0-0.7); Granulocytes % (Auto) 85.9 % (38.0-78.0); Lymphocytes # (Auto) 0.8 K/mcL (1.5-4.8); Lymphocytes % (Auto) 8.7 % (15.5-49.0); Mean Cell Volume 88.6 fL (80.0-100.0); Mean Corpuscular Hemoglobin 29.3 pg (26.0-34.0); Monocytes # (Auto) 0.4 K/mcL (0.1-0.9); Monocytes % (Auto) 4.3 % (1.0-9.0); Platelet Count 156 K/mcL (140-440); RBC 4.61 M/mcL (4.50-5.90); Red Cell Distribution Width 14.8 % (11.5-14.5)
[2016-05-15 08:01] LABS: ALT/SGPT 15 U/l (0-40); Albumin 3.5 gm/dL (3.2-5.2); Albumin/Globulin Ratio 1.5 (1.0-2.3); Alkaline Phosphatase 67 U/L (39-117); Bilirubin,Direct < 0.2 mg/dL (0.0-0.3); Blood Urea Nitrogen 16 mg/dl (8-23); Gamma Glutamyl Transpeptidase 34 U/L (8-61); Phosphorous 1.9 mg/dL (2.7-4.5); Uric Acid 4.9 mg/dL (2.5-8.0)
[2016-05-15] MEDS: FUROSEMIDE 20 MG TABLET PO SCH (09:21)
[2016-05-15] MEDS: LISINOPRIL 10 MG TABLET PO SCH ×2 (09:21→21:27)
[2016-05-15] MEDS: HYDROCHLOROTHIAZIDE 12.5 MG CAPSULE PO SCH (09:22)
[2016-05-15] MEDS: cefTRIAXone 1 GM in DEXTROSE 5% IN WATER 50 ML IV SCH (09:22)
[2016-05-15] MEDS: CARVEDILOL 12.5 MG TABLET PO SCH ×2 (09:22→21:28)
[2016-05-15] MEDS: NEUTRA PHOS 1 PACKET PO SCH ×2 (09:22→21:27)
[2016-05-15] MEDS: ACETAMINOPHEN 325 MG TABLET PO PRN (10:26)
[2016-05-15] MEDS: VANCOMYCIN 1,500 MG in 0.9 % SODIUM CHLORIDE 500 ML IV SCH ×2 (10:42→21:29)
--- NOTE | 2016-05-15 11:16 | Internal Med Progress Note ---
Medical - PN: Subj Patient information: Note initiated : 05/15/16 at 11:15 am Service Date, if different from initiated Date: [] Patient: Jessica Lemus a 75 y/o M admitted on 05/13/16 for Weakness, vomiting. Chief Complaint: [] Interval history: May 13, 2016:History of present illness: Mr. Lemus is a 75 year old male with a history of sleep apnea, and possible COPD, as well as diabetes and atrial fibrillation. He is brought here today by his son and daughter, who note that he has not been doing well for the last couple of days. His daughter reports that he's been complaining of dizziness and weakness for the last couple of days. He has felt feverish. Today he was able to get out of bed and get to a chair, but then was too weak to get out of the chair. It took 2 of them to try to lift him and practically drag him out of the car to bring him here. He has had decreased oral intake for the last couple of days, and did vomit just once this morning. He has been very somnolent today, and is not giving a very reliable history. ER evaluation did show a white blood cell count of 13,000 and mildly elevated blood glucose. Influenza screen is negative. He is febrile and tachycardic, and tachypneic, and does meet SIRS criteria. The patient is quite drowsy, but does wake up enough to answer questions, and then falls back asleep. He believes he has had a fever and chills, and whole body aching. He is not sure if he has been dizzy that has definitely been feeling weak. He otherwise denies headaches, and new eye or ear symptoms, sore throat. He has had a bit of a cough for a day or 2 and it sounds like that is nonproductive. He thinks he may be mildly short of breath, but is unable to clarify whether that is more than his usual shortness of breath. His daughter thinks he was recently diagnosed with COPD, but neither of them are sure. He does use some kind of inhaler at home, which we believe is Symbicort. He denies chest pain or palpitations, abdominal pain. He had nausea and vomiting once, and not since then. He denies constipation or diarrhea, or dysuria. May 14: this morning, the patient is more awake and alert. He is able to answer questions. His and daughter are in the room with him. He notes he is still feeling quite weak. His nurse notes she did complain of a headache and feeling a bit dizzy during the night last night, but that has resolved this morning. He notes he's had a mild cough for about 2 months but that seems fairly unchanged. He has had shortness of breath for about one year now. Outpatient workup so far has only revealed very mild or borderline COPD. He does think that the Symbicort inhaler might be helping somewhat. He notes he was actually feeling really great 2 days ago, and then suddenly just felt very fatigued. He currently denies subjective fever or chills, headache, sore throat. His cough is nonproductive. He has mild shortness of breath, even with talking, and his says this has been going on for quite a while at home. He denies chest pain or palpitations. He does report that the right upper side of his abdomen has been sore for a while now, although he is not definite on the time. He otherwise denies nausea or vomiting, diarrhea or constipation or bright red blood per rectum. He denies dysuria. D-dimer yesterday was negative.troponin was also negative. BNP was elevated at 1713. May 15: today, the patient says he is feeling better. He's had a little bit of a mild frontal headache,but otherwise is just feeling tired. He denies subjective fever or chills chest pain or shortness of breath He continues to have an occasional dry cough. He denies abdominal pain other than this chronic soreness in his right upper quadrant area. He denies nausea or vomiting, constipation or diarrhea, dysuria. - Constitutional Vitals: Vital Signs Temp Pulse Resp BP Pulse Ox 98.4 F 75 97 H 142/81 97 05/15/16 07:33 05/15/16 07:37 05/15/16 07:37 05/15/16 07:33 05/15/16 07:37 Period Temp Pulse Resp BP Sys/Gale Pulse Ox Last 24 Hr 97.5 F-98.5 F 20-84 22-97 111-157/63-97 92-98 Intake and Output 05/14/16 05/15/16 05/15/16 21:59 05:59 13:59 Intake Total 1939 / 1914 553 / 553 Output Total 751 / 751 1202 / 1202 750 / 750 Balance 1189 / 1189 713 / 713 -197 / -197 Weight 270 lb 14.4 oz Intake & Output: Intake & Output 05/14/16 05/15/16 05/15/16 21:59 05:59 13:59 Intake Total 1939 553 / 553 Output Total 751 / 751 1202 / 1202 750 / 750 Balance 1189 / 1189 713 / 713 -197 / -197 Weight 270 lb 14.4 oz Intake: IV 1065 / 1065 1515 / 1515 553 / 553 Potassium Chloride 30 Meq 1015 / 1015 1015 / 1015 503 / 503 In Sodium Chloride 0.45% 1,000 ml @ 100 mls/hr IV .[id number] G[facility] Rx#: [id number] Sodium Chloride 0.9% 500 500 / 500 ml @ 333.3 mls/hr IV Q12 [facility] with Vancomycin 1,500 mg Rx#:[id number] Dextrose 5% in Water 50 50 / 50 50 / 50 ml @ 100 mls/hr IV DAILY [facility] with Rocephin 1 gm Rx #:[id number] Oral 875 / 875 400 / 400 Output: Void Amount 750 / 750 1200 / 1200 750 / 750 # of times incontinent of 1 / 1 2 / 2 urine Other: Meal Dinner Dinner Percent of Meal Consumed 50% 50% Feeding Ability Assist with Tray Set Up Assist with Tray Set Up # Voids 1 1 Exam: on exam, he is awake and alert. he is sitting up in a chair. Neck is supple without obvious JVD. Cardiac exam shows what appears to be irregular rhythm, although it is slightly irregular on the monitor. Lungs:Essentially clear to auscultation. Abdomen: abdomen is generally soft and nontender with normal bowel sounds. Extremities: Show no significant edema. Neurologic exam: Is grossly nonfocal.he is alert and oriented.motor exam is nonfocal. Medical - PN: Obj Da - Labs CBC & Chem 7: 05/15/16 04:44 05/15/16 04:44 Labs: Abnormal Lab Results 05/15/16 05/15/16 05/15/16 07:53 04:44 04:44 WBC Hct 40.9 L RDW 14.8 H Gran % 85.9 H Lymph % (Auto) 8.7 L Gran # 8.3 H Lymph # 0.8 L Glucose 106 H Calcium 7.6 L Phosphorus 1.9 L Total Bilirubin Lactate Dehydrogenase NT-Pro-B Natriuret Pep Total Protein 5.8 L Vancomycin Trough 17.1 H 05/14/16 05/14/16 05/13/16 04:06 04:06 19:15 WBC 13.8 H Hct RDW 14.6 H Gran % 90.1 H Lymph % (Auto) 6.0 L Gran # 12.4 H Lymph # 0.8 L Glucose 123 H Calcium 8.3 L Phosphorus 2.4 L Total Bilirubin 1.3 H Lactate Dehydrogenase 348 H NT-Pro-B Natriuret Pep 1713.0 H Total Protein Vancomycin Trough 05/15: -intake and output balance, cumulative: +3200 mL-Blood cultures are negative so far 05/14: -CT of the chest, abdomen, pelvis: Shows a stable right middle lobe nodule. Stable benign appearing lesion of the pancreas. Left upper pole renal cyst. Prominent small bowel which is unchanged,with chronic partial obstruction not completely ruled out. Prominent common bile duct, but no ntrahepatic duct dilation. No stones. No intra-abdominal abscess. 05/13: -EKG shows A. fib at a rate of 100 with right bundle-branch block -d-dimer is normal. troponin is normal. -urinalysis shows a few red blood cells, but negative leukocyte esterase and negative nitrites. -lactic acid is normal at 1.2 -cBC differential shows 12,000 absolute neutrophil count, with depressed absolute lymphocyte count of 600 -Chest x-ray shows suboptimal inspiration. There is some vascular prominence but no definite infiltrate. Although the ER M.D. felt that there may be some hazinessin the right lower lung douglas. -ABG on room air: PH 7.45, CO2 of 37, PO2 of 61, O2 saturation 92% Meds: Medications Acetaminophen (Tylenol) 650 mg PO Q6HP PRN PRN Reason: PAIN/FEVER > 101 Last Admin: 05/15/16 10:26 Dose: 650 mg Albuterol Sulfate (Ventolin) 2.5 mg NEB Q2HP PRN PRN Reason: Shortness Of Breath Or Wheezing Albuterol/Ipratropium (Duoneb) 3 ml NEB Q6HRT [facility] Last Admin: 05/15/16 07:27 Dose: 3 ml Carvedilol (Coreg) 12.5 mg PO BID [facility] Last Admin: 05/15/16 09:22 Dose: 12.5 mg Dextrose (Dextrose 50%) 0 ml IV UD PRN PRN Reason: Hypoglycemia Diagnostic Test (Pha) (Accu-Chek) 1 each FS ACHS [facility] Last Admin: 05/15/16 07:10 Dose: 1 each Diltiazem HCl (Cardizem Cd) 240 mg PO QHS [facility] Last Admin: 05/14/16 20:21 Dose: 240 mg Furosemide (Lasix) 20 mg PO DAILY [facility] Last Admin: 05/15/16 09:21 Dose: 20 mg Hydrochlorothiazide (Oretic) 25 mg PO QDAY [facility] Last Admin: 05/15/16 09:22 Dose: 25 mg Ceftriaxone Sodium 1 gm/ (Dextrose) 50 mls @ 100 mls/hr IV DAILY [facility] Last Infusion: 05/15/16 10:00 Dose: Infused Vancomycin HCl 1,500 mg/ (Sodium Chloride) 500 mls @ 333.3 mls/hr IV Q12 [facility] Last Admin: 05/15/16 10:42 Dose: 250 mls/hr Insulin Human Lispro (Humalog) 0 unit SQ ACHS [facility] PRN Reason: Protocol Last Admin: 05/15/16 07:11 Dose: Not Given Lisinopril (Zestril) 30 mg PO BID [facility] Last Admin: 05/15/16 09:21 Dose: 30 mg Morphine Sulfate (Morphine) 1 mg IV Q2H PRN PRN Reason: Pain Naloxone HCl (Narcan) 0.1 mg IV Q2MIN PRN PRN Reason: Opiate Reversal Ondansetron HCl (Zofran) 4 mg IV Q4HP PRN PRN Reason: Nausea And Vomiting Last Admin: 05/14/16 14:21 Dose: 4 mg Potassium/Phosphorus/Sodium (Neutra Phos) 1 packet PO BID [facility] Last Admin: 05/15/16 09:22 Dose: 1 packet Rivaroxaban (Xarelto) 20 mg PO QPMCC [facility] Last Admin: 05/14/16 18:40 Dose: 20 mg Sodium Chloride (Saline Flush) 10 ml IV Q8 [facility] Last Admin: 05/15/16 10:00 Dose: 10 ml Tramadol HCl (Ultram) 50 mg PO Q4HP PRN PRN Reason: For breakthrough pain Medical - PN: A/P - Time Spent With Patient Total time spent is greater than 50% in coordination of care (as documented) at patient's floor/unit and/or counseling patient: 25 - 35 minutes (1) Fever Status: Acute Current Visit: Yes (2) SIRS (systemic inflammatory response syndrome) Status: Acute Current Visit: Yes (3) Atrial fibrillation Status: Chronic Current Visit: No (4) Diabetes mellitus, type II Status: Chronic Current Visit: No (5) Hypertension, essential Problem details: not well controlled, labile on current meds. Change and review in one month Status: Chronic Current Visit: No (6) Sleep apnea Problem details: on CPAP Status: Chronic Current Visit: No - Narrative A/P Narrative: #1. Infectious disease,the patient presents with signs and symptoms of sepsis. -source of sepsis is really not clear. Initially had some crackles, bibasilar, but chest CT does not show signs of pneumonia. He does not appear to have a UTI. Abdominal CT does not show intra-abdominal source. - blood gas does indicate a mild respiratory alkalosis, with mild hypoxemia. -blood cultures are negative so far. The patient seems to be responding to treatment with Zithromax, Rocephin, vancomycin. -continue IV fluid resuscitation,Bronchodilators oxygen, pulmonary toilet. -the etiology of his mild hypoxemia is unclear. . BNP is elevated,but his primary care doctor's notes indicate that the patient has had previous cardiac workup. I would imagine that he's had an echocardiogram, but we will need to try to verify that when his doctor's office is open. - They do report he has a previous history of both appendectomy and cholecystectomy. -the patient also has a pacemaker in place, which could serve as a possible nidus of infection. he also had kyphoplasty done several months ago, so I suppose that is another potential source. he may need follow-up blood cultures, and possibly a bone scan to see if we can locate a source. #2. History of sleep apnea. -Continue CPAP #3. Type 2 diabetes. -cover with sliding scale insulin.reasonable control. #4. Recent history of compression fracture. Continue tramadol, plus other when necessary pain medications.the patient did have kyphoplasty several months ago. #5. Cardiac. -History of chronic atrial fibrillation.he is maintained on rivaroxaban. -his primary care physician's notes indicate that he had a cardiac workup recently, and no cause was found for his dyspnea. He apparently does not have CHF but is maintained on hydrochlorothiazide, Lasix, Coreg, lisinopril, diltiazem. #6.pulmonary.-Patient apparently has been complaining of sensation of dyspnea for the last year or so. Cardiac workup was unrevealing. he had a plain chest CT in August 2015 that was essentially benign. He did have CT angiogram back in March 2015, that was also fairly unrevealing. There was a small lung nodule, that was stable at 6 month follow-up. -he also has a history of a dilated aortic root. -continued workup as noted above. #7. CODE STATUS: His daughter did call his , who is his POA. The indicate he wishes a DNR status. #8. DVT prophylaxis: rivaroxaban should cover this. #9. Neurologic. -mental status appears to be back to baseline today. #10. Fluids and nutrition. Both calcium and phosphorus are on the low side. We will replace the phosphorus. Recheck calcium later. approximately 35 minutes has been spent some part today, reviewing patient's chest results,interviewing and examining him, reviewing test results and plan of care with family and nursing staff, and writing orders. Medical - PN: Qual Medical - PN: Qual - VTE Deep Vein Thrombosis/Pulmonary Embolism Present on Admission: No
[2016-05-15] MEDS: AZITHROMYCIN 500 MG in DEXTROSE 5% IN WATER 250 ML IV SCH (12:29)
[2016-05-15] MEDS: RIVAROXABAN 20 MG TABLET PO SCH (17:18)
[2016-05-15] MEDS: DILTIAZEM 240 MG CAP.XL.24H PO SCH (21:28)
[2016-05-16] MEDS: IPRATROPIUM/ALBUTEROL 3 ML AMPUL.NEB NEB SCH ×3 (01:45→14:04)
[2016-05-16 06:43] LABS: Basophils # (Auto) 0 K/mcL (0.0-0.3); Basophils % (Auto) 0.2 % (0.0-2.0); Eosinophils # (Auto) 0.3 K/mcL (0.0-0.7); Eosinophils % (Auto) 3.5 % (0.0-7.0); Granulocytes % (Auto) 76.9 % (38.0-78.0); Lymphocytes # (Auto) 1.1 K/mcL (1.5-4.8); Lymphocytes % (Auto) 14.5 % (15.5-49.0); Mean Cell Volume 88.7 fL (80.0-100.0); Mean Corpuscular HGB Conc 32.8 g/dL (31.0-36.0); Mean Corpuscular Hemoglobin 29.1 pg (26.0-34.0); Monocytes # (Auto) 0.4 K/mcL (0.1-0.9); Monocytes % (Auto) 4.9 % (1.0-9.0); Platelet Count 164 K/mcL (140-440); RBC 4.59 M/mcL (4.50-5.90); Red Cell Distribution Width 14.6 % (11.5-14.5)
[2016-05-16 07:21] LABS: ALT/SGPT 16 U/l (0-40); Albumin 3.3 gm/dL (3.2-5.2); Albumin/Globulin Ratio 1.1 (1.0-2.3); Alkaline Phosphatase 69 U/L (39-117); Bilirubin,Direct < 0.2 mg/dL (0.0-0.3); Blood Urea Nitrogen 20 mg/dl (8-23); Gamma Glutamyl Transpeptidase 33 U/L (8-61); Magnesium 2.1 mg/dL (1.6-2.5); Phosphorous 2.3 mg/dL (2.7-4.5); Uric Acid 5.6 mg/dL (2.5-8.0)
--- NOTE | 2016-05-16 07:37 | XRay Report ---
CLINICAL INFORMATION: Right ankle pain TECHNIQUE: AP, internal rotation, lateral view of the right ankle COMPARISON: None. FINDINGS: Dynamic compression plate on the distal right fibula. Alignment is anatomic. Small bone density adjacent to the tip of the medial malleolus is consistent with a small fracture fragment. Talus and calcaneus are negative. There are changes consistent with mild degenerative disease in the subtalar joint. IMPRESSION: 1. Previous open reduction and internal fixation of distal right fibular fracture. 2. Small bone density adjacent to the medial malleolus. Interpreted and Authenticated by: Favian Cuenca 05/16/16
[2016-05-16] MEDS: 0.9 % SODIUM CHLORIDE 10 ML SYRINGE IV SCH ×2 (07:56→14:16)
[2016-05-16] MEDS: INSULIN LISPRO 1 UNIT/0.01 ML UNIT SQ SCH ×3 (07:57→17:32)
[2016-05-16] MEDS: NEUTRA PHOS 1 PACKET PO SCH (09:11)
[2016-05-16] MEDS: LISINOPRIL 10 MG TABLET PO SCH (09:11)
[2016-05-16] MEDS: HYDROCHLOROTHIAZIDE 12.5 MG CAPSULE PO SCH (09:11)
[2016-05-16] MEDS: FUROSEMIDE 20 MG TABLET PO SCH ×2 (09:12→09:14)
[2016-05-16] MEDS: CARVEDILOL 12.5 MG TABLET PO SCH (09:12)
[2016-05-16] MEDS: cefTRIAXone 1 GM in DEXTROSE 5% IN WATER 50 ML IV SCH (09:46)
[2016-05-16] MEDS: VANCOMYCIN 1,500 MG in 0.9 % SODIUM CHLORIDE 500 ML IV SCH (11:14)
--- NOTE | 2016-05-16 17:37 | Discharge Summary ---
Medical - DS: Prov Patient information: Note initiated : 05/16/16 at 5:33 pm Service Date, if different from initiated Date: [] Patient: Jessica Lemus 75 y/o M admitted on 05/13/16 for Weakness, Vomiting. Chief Complaint: [] Date of admission: 05/13/16 17:15 Discharge date: 05/16/16 Primary care physician: [f_Reg Prim Care Provider] Medical - DS: Meds - Discharge Medications Prescriptions: Cefdinir 300 mg PO BID #10 capsule Active and Home Medications: Home Medications Acetaminophen [Tylenol] 1,000 mg PO Q4-6HP PRN 05/13/16 [History Confirmed 05/13 Last Taken 05/12/16 1000 mg] CPAP machine 12 cm HS 05/14/16 [History Confirmed 05/14/16 Last Taken 05/12/16] Cefdinir 300 mg PO BID #10 capsule 05/16/16 [Rx Last Taken Unknown] Active Medications Acetaminophen (Tylenol) 650 mg PO Q6HP PRN PRN Reason: PAIN/FEVER > 101 Last Admin: 05/15/16 10:26 Dose: 650 mg Albuterol Sulfate (Ventolin) 2.5 mg NEB Q2HP PRN PRN Reason: Shortness Of Breath Or Wheezing Albuterol/Ipratropium (Duoneb) 3 ml NEB Q6HRT [facility] Last Admin: 05/16/16 14:04 Dose: 3 ml Carvedilol (Coreg) 12.5 mg PO BID [facility] Last Admin: 05/16/16 09:12 Dose: 12.5 mg Dextrose (Dextrose 50%) 0 ml IV UD PRN PRN Reason: Hypoglycemia Diagnostic Test (Pha) (Accu-Chek) 1 each FS ACHS [facility] Last Admin: 05/16/16 13:32 Dose: Not Given Diltiazem HCl (Cardizem Cd) 240 mg PO QHS [facility] Last Admin: 05/15/16 21:28 Dose: 240 mg Furosemide (Lasix) 20 mg PO DAILY [facility] Last Admin: 05/16/16 09:14 Dose: Not Given Hydrochlorothiazide (Oretic) 25 mg PO QDAY [facility] Last Admin: 05/16/16 09:11 Dose: 25 mg Ceftriaxone Sodium 1 gm/ (Dextrose) 50 mls @ 100 mls/hr IV DAILY [facility] Last Admin: 05/16/16 09:46 Dose: 100 mls/hr Insulin Human Lispro (Humalog) 0 unit SQ ACHS [facility] PRN Reason: Protocol Last Admin: 05/16/16 13:33 Dose: Not Given Lisinopril (Zestril) 30 mg PO BID [facility] Last Admin: 05/16/16 09:11 Dose: 30 mg Morphine Sulfate (Morphine) 1 mg IV Q2H PRN PRN Reason: Pain Naloxone HCl (Narcan) 0.1 mg IV Q2MIN PRN PRN Reason: Opiate Reversal Ondansetron HCl (Zofran) 4 mg IV Q4HP PRN PRN Reason: Nausea And Vomiting Last Admin: 05/14/16 14:21 Dose: 4 mg Potassium/Phosphorus/Sodium (Neutra Phos) 1 packet PO BID [facility] Last Admin: 05/16/16 09:11 Dose: 1 packet Rivaroxaban (Xarelto) 20 mg PO QPMCC [facility] Last Admin: 05/15/16 17:18 Dose: 20 mg Sodium Chloride (Saline Flush) 10 ml IV Q8 [facility] Last Admin: 05/16/16 14:16 Dose: Not Given Tramadol HCl (Ultram) 50 mg PO Q4HP PRN PRN Reason: For breakthrough pain Medical - DS: Hosp Hospital course: DISCHARGE DIAGNOSIS * Systemic inflammatory response syndrome. Rapidly improved on antibiotics however no obvious source identified on imaging and blood work. Continue antibiotic for additional 5 days to cover7 day course. all cultures negative so far * right ankle pain-negative ankle x-ray except for fractured fragment right medial malleolus. * History of EDUARDO on CPAP * Atrial fibrillation on diltiazem/Coreg * Hypertension on FLORENCIA inhibitor peripheral/diltiazem * COPD on budesonide * anticoagulation on rivaroxaban BRIEF HOSPITAL COURSE May 13, 2016:History of present illness: Mr. Lemus is a 75 year old male with a history of sleep apnea, and possible COPD, as well as diabetes and atrial fibrillation. He is brought here today by his son and daughter, who note that he has not been doing well for the last couple of days. His daughter reports that he's been complaining of dizziness and weakness for the last couple of days. He has felt feverish. Today he was able to get out of bed and get to a chair, but then was too weak to get out of the chair. It took 2 of them to try to lift him and practically drag him out of the car to bring him here. He has had decreased oral intake for the last couple of days, and did vomit just once this morning. He has been very somnolent today, and is not giving a very reliable history. ER evaluation did show a white blood cell count of 13,000 and mildly elevated blood glucose. Influenza screen is negative. He is febrile and tachycardic, and tachypneic, and does meet SIRS criteria. The patient is quite drowsy, but does wake up enough to answer questions, and then falls back asleep. He believes he has had a fever and chills, and whole body aching. He is not sure if he has been dizzy that has definitely been feeling weak. He otherwise denies headaches, and new eye or ear symptoms, sore throat. He has had a bit of a cough for a day or 2 and it sounds like that is nonproductive. He thinks he may be mildly short of breath, but is unable to clarify whether that is more than his usual shortness of breath. His daughter thinks he was recently diagnosed with COPD, but neither of them are sure. He does use some kind of inhaler at home, which we believe is Symbicort. He denies chest pain or palpitations, abdominal pain. He had nausea and vomiting once, and not since then. He denies constipation or diarrhea, or dysuria. May 14: this morning, the patient is more awake and alert. He is able to answer questions. His and daughter are in the room with him. He notes he is still feeling quite weak. His nurse notes she did complain of a headache and feeling a bit dizzy during the night last night, but that has resolved this morning. He notes he's had a mild cough for about 2 months but that seems fairly unchanged. He has had shortness of breath for about one year now. Outpatient workup so far has only revealed very mild or borderline COPD. He does think that the Symbicort inhaler might be helping somewhat. He notes he was actually feeling really great 2 days ago, and then suddenly just felt very fatigued. He currently denies subjective fever or chills, headache, sore throat. His cough is nonproductive. He has mild shortness of breath, even with talking, and his says this has been going on for quite a while at home. He denies chest pain or palpitations. He does report that the right upper side of his abdomen has been sore for a while now, although he is not definite on the time. He otherwise denies nausea or vomiting, diarrhea or constipation or bright red blood per rectum. He denies dysuria. D-dimer yesterday was negative.troponin was also negative. BNP was elevated at 1713. May 15: today, the patient says he is feeling better. He's had a little bit of a mild frontal headache,but otherwise is just feeling tired. He denies subjective fever or chills chest pain or shortness of breath He continues to have an occasional dry cough. He denies abdominal pain other than this chronic soreness in his right upper quadrant area. He denies nausea or vomiting, constipation or diarrhea, dysuria. May 16- patient doing well. No overnight events. No fever chills nausea vomiting. Feels at baseline. Ankle x-ray shows small fracture above medial malleolus. Cultures negative to date. since patient showed dramatic improvement to ceftriaxone over the last 48 hours. We will continue third- generation orals per cephalosporin on discharge. Patient was advised to return to ER if changes in symptoms noted. discharge instructions as below Discharge diagnosis: SIRS - Time Spent with Patient Total time spent providing and/or coordinating discharge services: Medical - DS: Exam - Constitutional Vitals: Vital Signs Temp Pulse Pulse Resp BP Pulse Ox 05/16/16 15:27 97.8 F 67 19 177/81 94 05/16/16 14:05 68 18 05/16/16 11:15 97.3 F L 61 18 130/80 97 05/16/16 08:00 98.0 F 80 18 162/95 95 05/16/16 07:30 68 18 05/16/16 03:49 97.9 F 71 24 162/82 95 05/16/16 00:00 97.9 F 79 24 170/104 97 05/15/16 20:05 65 16 95 05/15/16 20:03 60 16 96 05/15/16 20:00 97.6 F 20 155/76 96 05/15/16 18:25 65 20 96 Intake and Output 05/16/16 05/16/16 05/16/16 05:59 13:59 21:59 Intake Total 1100 / 1100 360 / 360 80 / 80 Output Total 703 / 703 301 / 301 Balance 397 / 397 59 / 59 80 / 80 Intake: IV 500 / 500 Sodium Chloride 0.9% 500 500 / 500 ml @ 333.3 mls/hr IV Q12 GORDON with Vancomycin 1,500 mg Rx#:[id number] Oral 600 / 600 360 / 360 80 / 80 Output: Void Amount 700 / 700 300 / 300 # of times incontinent of 3 / 3 1 urine Other: Meal Breakfast Percent of Meal Consumed 100% Feeding Ability Independent # Voids 1 # Bowel Movements 1 1 Medical - DS: Data Labs on day of discharge: Labs from last 24 hours 05/16/16 05/16/16 05/16/16 08:34 05:10 05:10 WBC 7.3 RBC 4.59 Hgb 13.4 L Hct 40.7 L MCV 88.7 MCH 29.1 MCHC 32.8 RDW 14.6 H Plt Count 164 MPV 9.1 Gran % 76.9 Lymph % (Auto) 14.5 L Clarke % (Auto) 4.9 Eos % (Auto) 3.5 Baso % (Auto) 0.2 Gran # 5.6 Lymph # 1.1 L Clarke # 0.4 Eos # 0.3 Baso # 0 Sodium 135 Potassium 3.3 Chloride 99 Carbon Dioxide 23 Anion Gap 13.0 BUN 20 Creatinine 1.0 GFR Calculation 72 Glucose 109 H Uric Acid 5.6 Calcium 8.0 L Phosphorus 2.3 L Magnesium 2.1 Total Bilirubin 0.6 Direct Bilirubin < 0.2 GGT 33 AST 20 ALT 16 Alkaline Phosphatase 69 Lactate Dehydrogenase 207 Total Protein 6.3 Albumin 3.3 Globulin 3.0 Albumin/Globulin Ratio 1.1 Triglycerides 125 Vancomycin Trough 22.2 H* Medical - DS: A/P - Patient/Caregiver Discharge Instructions Activity: increase activity as tolerated, resume usual activities as tolerated Diet: Cardiac, Renal/Consistent Carbs Additional Instructions: Follow-up PCP in 5 days I recommend physician to check CBC BMP UA as a posthospital follow-up Antibiotics for additional 5 days Continue aggressive bowel regimen to prevent constipation Continue fall precautions All meals on chair sitting upright at 90 degrees to prevent aspiration Return to ER if worsening fever chills shortness of breath, diarrhea, bleeding Review risk and side effect profile of medications including antibiotics. Side effect may include mild to severe reaction including rash, diarrhea, cdiff and even which can be prevented by close follow-up with PCP Continue diet and activity as advised Discussed importance of medication adherence Please review medication list with patient prior to discharge Please schedule follow-up with PCP/Providers prior to discharge and provide printouts Portions of this chart may have been created with [employer] voice recognition software. Occasional wrong-word or ?sound-like? substitutions may have occurred due to the inherent limitations of voice recognition software. Please read the chart carefully and recognize, using context, where the substitutions have occurred. CC- PCP Prescriptions: Cefdinir 300 mg PO BID #10 capsule - Follow up Plan Follow up with: Ant Alvarez MD [Primary Care Provider] - Disposition: Home, Self-Care Prognosis: Fair Rehab Potential: Fair I certify that the patient requires SNF services: No Overall status at discharge: patient is progressing back to baseline Medical - DS: Qual - VTE Deep Vein Thrombosis/Pulmonary Embolism Present on Admission: No
[2016-05-16] MEDS: RIVAROXABAN 20 MG TABLET PO SCH (17:46)
== END 2016-05-16 19:01 | disposition home or self-care (01) | DRG 872 ==
LOC: ED 12:30 → ICU 17:15
PROVIDERS: ADMIT Internal Medicine; ATTEND Internal Medicine

== ENCOUNTER 2016-05-25 22:22 | Inpatient (IN) ==
[2016-05-25] MEDS ORDERED: 0.9 % SODIUM CHLORIDE 500 ML IV ONE (22:36)
--- NOTE | 2016-05-25 22:52 | Emergency Department Note ---
Weakness HPI - General Chief complaint: Weakness Stated complaint: Weakness Time Seen by Provider: 05/25/16 22:35 Source: patient Mode of arrival: wheelchair Limitations: no limitations - History of Present Illness HPI Narrative: 76-year-old male male on [birth year] and discharged on 05/16/16 was discharged on antibiotics for systemic inflammatory response syndrome. Cultures were all negative. It has been seen by Dr. Hussein in for follow-up. Had a Doppler which was negative as well as the pelvic and abdomen CT is continued to run fevers. Since then. He had continued weakness. Denies any cough . He is finishing his antibiotic today. Does have a current temperature of 102.4. increased weakness since yesterday - Related Data Home Medications Medication Instructions Recorded Confirmed rivaroxaban 20 mg tablet 20 mg PO .COMPLEX tab 12/14/14 05/22/16 Diltiazem HCl [Cartia Xt] 240 mg PO HS 12/15/14 05/22/16 Lisinopril [Zestril] 30 mg PO BID 12/15/14 05/22/16 carvedilol 12.5 mg tablet 12.5 mg PO DAILY 90 Days 10/21/15 05/22/16 furosemide 20 mg tablet 20 mg PO DAILY 90 Days 10/21/15 05/22/16 Acetaminophen [Tylenol] 1,000 mg PO Q4-6HP PRN 05/13/16 05/22/16 CPAP machine 12 cm HS 05/14/16 05/22/16 Previous Rx's Medication Instructions Recorded hydrochlorothiazide 12.5 mg capsule 25 mg PO QDAY #90 cap 10/01/15 tramadol 50 mg tablet 50 mg PO Q4H PRN #60 tab 12/08/15 budesonide-formoterol HFA 160 2 inh INHALATION Q12H #10.2 g 04/12/16 mcg-4.5 mcg/actuation aerosol inhaler Cefdinir 300 mg PO BID #10 cap 05/16/16 cephalexin 500 mg capsule 500 mg PO TID #30 cap 05/25/16 Allergies Allergy/AdvReac Type Severity Reaction Status Date / Time amiodarone AdvReac Unknown Unknown Verified 05/22/16 08:59 Review of Systems All systems ED: reviewed and negative except as stated. Constitutional: Reports: fever, chills Eyes: Denies: eye pain ENT ED: Denies: ear pain Cardiovascular: Denies: chest pain Respiratory: Reports: cough Gastrointestinal: Denies: abdominal pain Genitourinary: Denies: urgency, dysuria Musculoskeletal: Denies: back pain Integumentary: Denies: rash Neurological: Denies: headache Psychiatric: Denies: anxiety Endocrine: Denies: fatigue Hematological/Lymphatic: Denies: easy bleeding Allergic/Immunologic: Denies: facial swelling Past Medical History - Past Medical History Medical history: Reports: non-contributory, atrial fibrillation, CVA, hypertension, other (Sleep apnea sick sinus syndrome with pacemaker, diabetes type 2, cardiomegaly,) Surgical history ED: Reports: appendectomy, herniorrhaphy, other (Pacemaker, shoulder surgery, ankle surgery) Family history: Reports: diabetes, other family history (sister parkinson's) - Social History smoking status: Never smoker Alcohol use: Reports: None Physical Exam - General Limitations: no limitations General appearance: alert - Head Head exam: atraumatic - Eye Eye exam: Present: normal appearance, PERRL - ENT ENT exam: normal exam, normal oropharynx - Neck Neck exam: Present: normal inspection, full ROM. Absent: trachea midline - Chest Chest inspection: Present: normal inspection - Respiratory Respiratory exam: Present: normal lung sounds bilaterally. Absent: respiratory distress, wheezes - Cardiovascular Cardiovascular exam: Present: regular rate, normal rhythm - Abdominal Exam Abdominal exam: Present: soft. Absent: distention, tenderness - Extremities Exam Extremities exam: Present: normal inspection, full ROM. Absent: tenderness - Back Exam Back exam: Present: normal inspection, full ROM. Absent: tenderness - Neurological Exam Neurological exam: Present: oriented X3, CN II-XII intact, normal gait, reflexes normal. Absent: alert (pt reponds but slow), motor sensory deficit - Skin Skin exam: Present: warm, dry, intact Course Vital Signs Temperature 102.4 F H 05/25/16 22:23 Pulse Rate 106 H 05/25/16 22:23 Respiratory Rate 24 05/25/16 22:23 Blood Pressure 171/94 05/25/16 22:23 Pulse Oximetry (%) 96 05/25/16 22:23 Temperature 100.7 F H 05/26/16 00:08 Pulse Rate 99 H 05/26/16 02:46 Respiratory Rate 24 05/25/16 22:23 Blood Pressure 153/93 05/26/16 02:46 Pulse Oximetry (%) 97 05/26/16 02:46 Weakness - MDM Narrative Medical decision making narrative: Initial temperatures 10 2.4. Flu test is negative. WBC 8486 segs, 4 bands, 6 lymphocytes. lactic acid is 1.4 . Chest x-ray is normal Dr Alondra saucedo. patient increasing weakness, fever. Patient admitted to observation for weaknessand failed outpatient treatment - Lab Data Result diagrams: 05/25/16 22:50 05/25/16 22:50 Lab Results 05/25/16 05/25/16 05/25/16 Range/Units 00:05 22:50 22:50 WBC 8.4 (4.5-11.0) K/mcL RBC 5.07 (4.50-5.90) M/mcL Hgb 15.0 (13.5-16.5) g/dL Hct 43.1 (41.0-55.0) % MCV 85.1 (80.0-100.0) fL MCH 29.5 (26.0-34.0) pg MCHC 34.7 (31.0-36.0) g/dL RDW 13.4 (11.5-14.5) % Plt Count 309 (140-440) K/mcL MPV 8.7 (7.4-10.4) fL Total Counted 100 Seg Neutrophils % 86 H (38-78) % Band Neutrophils % 4 (0-10) % Lymphocytes % 6 L (15-49) % Monocytes % (Manual) 3 (1-9) % Eosinophils % (Manual) 1 (0-7) % Platelet Estimate Normal (NORMAL) RBC Morphology Normal (NORMAL) VBG Lactic Acid 1.4 (0.5-2.2) mmol/L Sodium (133-145) mmol/L Potassium (3.3-5.1) mmol/L Chloride (96-108) mmol/L Carbon Dioxide (22-30) mmol/L Anion Gap (8-16) BUN (8-23) mg/dl Creatinine (0.7-1.2) mg/dl GFR Calculation Glucose (70-105) mg/dL Calcium (8.6-10.4) mg/dl Total Bilirubin (0.0-1.0) mg/dL AST (0-37) U/l ALT (0-40) U/l Alkaline Phosphatase (39-117) U/L Total Protein (5.9-8.4) gm/dL Albumin (3.2-5.2) gm/dL Globulin (2.2-3.7) gm/dL Albumin/Globulin Ratio (1.0-2.3) Urine Color Yellow Urine Appearance Clear Urine pH 6.0 (5.0-9.0) Ur Specific [place] 1.017 (1.000-1.035) Urine Protein Neg (NEG) mg/dL Urine Glucose (UA) Negative (NEG) mg/dL Urine Ketones Neg (NEG) mg/dL Urine Occult Blood Neg (<0.03) mg/dL Urine Nitrate Neg (NEG) Urine Bilirubin Neg (NEG) mg/dL Urine Urobilinogen Neg (NEG) mg/dL Ur Leukocyte Esterase Neg (NEG) /uL Urine RBC 2 H (0-1) /hpf Urine WBC 1 (0-4) /hpf Ur Squamous Epith Cells < 1 (0-4) /hpf Urine Bacteria 0 (0) /hpf Hyaline Casts 1 (0-2) /lpf Urine Mucus Few (0) /hpf Ur Culture Indicated? No 05/25/16 Range/Units 22:50 WBC (4.5-11.0) K/mcL RBC (4.50-5.90) M/mcL Hgb (13.5-16.5) g/dL Hct (41.0-55.0) % MCV (80.0-100.0) fL MCH (26.0-34.0) pg MCHC (31.0-36.0) g/dL RDW (11.5-14.5) % Plt Count (140-440) K/mcL MPV (7.4-10.4) fL Total Counted Seg Neutrophils % (38-78) % Band Neutrophils % (0-10) % Lymphocytes % (15-49) % Monocytes % (Manual) (1-9) % Eosinophils % (Manual) (0-7) % Platelet Estimate (NORMAL) RBC Morphology (NORMAL) VBG Lactic Acid (0.5-2.2) mmol/L Sodium 133 (133-145) mmol/L Potassium 3.6 (3.3-5.1) mmol/L Chloride 92 L (96-108) mmol/L Carbon Dioxide 26 (22-30) mmol/L Anion Gap 15.0 (8-16) BUN 13 (8-23) mg/dl Creatinine 1.1 (0.7-1.2) mg/dl GFR Calculation 64 Glucose 134 H (70-105) mg/dL Calcium 8.8 (8.6-10.4) mg/dl Total Bilirubin 0.8 (0.0-1.0) mg/dL AST 22 (0-37) U/l ALT 27 (0-40) U/l Alkaline Phosphatase 131 H (39-117) U/L Total Protein 7.8 (5.9-8.4) gm/dL Albumin 4.0 (3.2-5.2) gm/dL Globulin 3.8 H (2.2-3.7) gm/dL Albumin/Globulin Ratio 1.1 (1.0-2.3) Urine Color Urine Appearance Urine pH (5.0-9.0) Ur Specific [place] (1.000-1.035) Urine Protein (NEG) mg/dL Urine Glucose (UA) (NEG) mg/dL Urine Ketones (NEG) mg/dL Urine Occult Blood (<0.03) mg/dL Urine Nitrate (NEG) Urine Bilirubin (NEG) mg/dL Urine Urobilinogen (NEG) mg/dL Ur Leukocyte Esterase (NEG) /uL Urine RBC (0-1) /hpf Urine WBC (0-4) /hpf Ur Squamous Epith Cells (0-4) /hpf Urine Bacteria (0) /hpf Hyaline Casts (0-2) /lpf Urine Mucus (0) /hpf Ur Culture Indicated? Disposition Clinical Impression: Weakness Disposition: Xfer As Outpt/Obs ([facility]) Referrals: Ant Alvarez MD [Primary Care Provider] -
[2016-05-25 23:33] LABS: Mean Cell Volume 85.1 fL (80.0-100.0); Mean Corpuscular HGB Conc 34.7 g/dL (31.0-36.0); Mean Corpuscular Hemoglobin 29.5 pg (26.0-34.0); Platelet Count 309 K/mcL (140-440); RBC 5.07 M/mcL (4.50-5.90); Red Cell Distribution Width 13.4 % (11.5-14.5)
[2016-05-25 23:50] LABS: ALT/SGPT 27 U/l (0-40); Albumin/Globulin Ratio 1.1 (1.0-2.3); Alkaline Phosphatase 131 U/L (39-117); Blood Urea Nitrogen 13 mg/dl (8-23)
[2016-05-25 23:54] LABS: Band Neutrophils % 4 % (0-10); Eosinophils % (Manual) 1 % (0-7); Lymphocytes % 6 % (15-49); Monocytes % (Manual) 3 % (1-9); Platelet Estimate NORMAL (NORMAL); RBC Morphology NORMAL (NORMAL); Segmented Neutrophils % 86 % (38-78)
[2016-05-26 00:36] LABS: Appearance,Urine CLEAR; Bacteria,Urine 0 /hpf (0); Bilirubin,Urine NEG (NEG); Color,Urine YELLOW; Glucose,Urine (UA) NEGATIVE (NEG); Leukocyte Esterase,Urine NEG /uL (NEG); Mucus,Urine FEW /hpf (0); Nitrate,Urine NEG (NEG); Protein,Urine NEG (NEG); Specific Gravity,Urine 1.017 (1.000-1.035); Urine Blood NEG mg/dL (<0.03); Urine Hyaline Cast 1 /lpf (0-2); Urine RBC 2 /hpf (0-1); Urine Squamous Epithelial Cell < 1 /hpf (0-4); Urine WBC 1 /hpf (0-4); Urobilinogen,Urine NEG (NEG)
[2016-05-26] MEDS ORDERED: ACETAMINOPHEN 325 MG TABLET PO PRN (02:59)
[2016-05-26] MEDS ORDERED: 0.9 % SODIUM CHLORIDE 1,000 ML IV SCH (03:00)
--- NOTE | 2016-05-26 06:10 | XRay Report ---
CLINICAL INFORMATION: History of arrhythmia weakness COMPARISON: 05/13/2016 portable chest FINDINGS: Moderate cardiomegaly is decreased from previous study. Pacemaker leads in stable satisfactory position. Mediastinum is normal. The pulmonary vessels returned to normal in caliber and interstitial edema has almost totally cleared. There are no infiltrates or effusions. IMPRESSION: Interval resolution CHF Interpreted and Authenticated by: Favian Yepez 05/26/16
[2016-05-26] MEDS ORDERED: traMADol 50 MG TABLET PO PRN (07:49)
[2016-05-26] MEDS ORDERED: ACETAMINOPHEN 500 MG TABLET PO PRN (07:49)
[2016-05-26] MEDS ORDERED: CEFDINIR 300 MG PO SCH (09:00)
[2016-05-26] MEDS ORDERED: FUROSEMIDE 20 MG TABLET PO SCH (09:00)
[2016-05-26] MEDS ORDERED: CEPHALEXIN 500 MG CAPSULE PO SCH (09:00)
[2016-05-26] MEDS ORDERED: FUROSEMIDE 40 MG/4 ML VIAL IV ONE (09:18)
[2016-05-26] MEDS ORDERED: IPRATROPIUM/ALBUTEROL 3 ML AMPUL.NEB NEB PRN (09:22)
[2016-05-26 09:25] LABS: Strep Pneumoniae Antigen - UR NEGATIVE (NEGATIVE)
[2016-05-26] MEDS: HYDROCHLOROTHIAZIDE 25 MG TABLET PO SCH (09:35)
[2016-05-26] MEDS: LISINOPRIL 10 MG TABLET PO SCH ×2 (09:35→20:29)
[2016-05-26] MEDS: CARVEDILOL 12.5 MG TABLET PO SCH (09:35)
[2016-05-26 09:45] LABS: C-Reactive Protein 4.6 mg/dl (0.0-0.8)
[2016-05-26] MEDS: Budesonide/Formoterol Fumarate [Symbicort 160-4.5 MCG] Inhaler INH SCH ×2 (10:44→20:30)
--- NOTE | 2016-05-26 10:59 | History and Physical Report ---
DATE OF ADMISSION: 05/26/2016 REASON FOR ADMISSION: Fever of unknown origin, weakness, chills, inability to function. HISTORY OF CHIEF COMPLAINT: The patient is a 76-year-old who lives with his and fairly independent, who comes to [facility] ER for the second time in the last couple of weeks with a fever of unknown etiology. Patient was recently diagnosed with systemic inflammatory response syndrome and was discharged on 05/17 on antibiotics after favorable response to third generation cephalosporins. However, during the last admit including a CT abdomen, chest, and pelvis and extensive blood work failed to reveal a focus of infection and patient post-discharge continued to improve; however, he was seen at the primary care physician's office with significant right lower extremity swelling and tenderness around the right ankle and subsequently had a negative Doppler lower extremity ultrasound. Over the last 24 hours, the patient has been unable to get out of bed with generalized weakness, aches, high grade fever of 102.5 increasing confusion, loss of appetite. He denies associated diarrhea, dysuria, new onset of joint pain, rash, headache, photophobia, and sinus symptoms. He endorses to persistent right ankle swelling and pain mostly on the inner aspect around the malleolus restricting his mobility. He denies any incontinence. Initial workup in the ER was essentially unremarkable with a negative influenza, along with normal white count; however, given his fever of 102 along with tachycardia and tachypnea Hospitalist Service was consulted for evaluation for fever of unknown origin. At the time of examination, the patient is accompanied with his son. He was able to provide most of the history. He denies productive cough. He endorses shortness of breath but denies chest pain. REVIEW OF SYSTEMS: Ten-point system was performed and negative except the ones discussed above. PAST MEDICAL HISTORY: 1. Degenerative joint disease. 2. Atrial fibrillation. 3. Hypertension. 4. History of congestive heart failure. 5. Anticoagulation for CVA prophylaxis. 6. Underlying sleep apnea. 7. Diabetes. 8. COPD. PAST SURGICAL HISTORY: Cardiac pacemaker placement in 2012 and multiple orthopedic surgeries involving the right ankle, left shoulder rotator cuff, right leg fracture repair. CURRENT MEDICATIONS: 1. Budesonide. 2. Formoteral. 3. Lisinopril 30 mg b.i.d. 4. Diltiazem 240 mg at bedtime. 5. Hydrochlorothiazide 25 daily. 6. Furosemide 20 mg daily. 7. Rivaroxaban 20 mg. 8. Tramadol 50 mg q.4h. FAMILY HISTORY: Significant for sister with Parkinson's disease. ALLERGIES: KNOWN TO AMIODARONE. SOCIAL HISTORY: He is and lives with his . He has a son and a daughter. No history of smoking or alcoholism. CODE STATUS: FULL CODE. PHYSICAL EXAMINATION: GENERAL: The patient is fatigued and lethargic but in no apparent distress. BMI 35. Height 6 feet 1 inch. VITAL SIGNS: Blood pressure 166/112, respiratory rate 24, temperature 101, pulse 100, sats 97% on room air. HEENT: Pupils symmetric. Oral cavity is dry. No ear or nose discharge. Head is normocephalic and atraumatic. NECK: No lymphadenopathy. HEART: S1 and S2, irregular rhythm. Ejection systolic murmur grade 1. CHEST: Diminished breath sounds at bases with late inspiratory crackles. ABDOMEN: Soft and nontender. LOWER EXTREMITIES: Right lower extremity: Around the ankle significant swelling along with stasis changes and brawny induration with stasis dermatitis, 2+ pitting edema, right more than left and diminished range of motion of the right ankle. SKIN: Otherwise, no suspicious lesions. PSYCHIATRIC: Anxious, fatigued and lethargic, but no agitation. NEURO: Nonfocal, moving all four extremities. LABS AND IMAGING: White count 8.4, hemoglobin 15, platelets 309. Lactic acid 1.4, sodium 130, potassium 3.6, creatinine 1.1, BUN 13. LFTs unremarkable. UA unremarkable. X-ray chest: Interval resolution of CHF. ASSESSMENT AND PLAN: A 76-year-old admitted with fever of unknown origin. 1. Fever of unknown origin, unclear etiology. Abdominal pelvis CT unremarkable. X-ray chest: No evidence of focal infection. UA unremarkable. Blood cultures and influenza panel negative. Continue further testing including HIV and Shawn-Landa virus along with strep pneumo and mycoplasma legionella and mycobacterial TB, also include rheumatological studies including rheumatoid factor, LINDA screen. Avoid antibiotics at this time due to unclear source. Chavez cultures awaited. Check inflammatory markers including ESR, CRP. 2. Right ankle swelling along with pain, rule out septic arthritis, arthrocentesis ordered. 3. History of congestive heart failure, continued diuresis along with FLORENCIA inhibitors, beta jolie. 4. History of obstructive sleep apnea. Continue CPAP. 5. Mild COPD. Continue bronchodilators. 6. Hypertension. Continue FLORENCIA inhibitors/beta jolie. 7. Anticoagulation for CVA prophylaxis on rivaroxaban. 8. Atrial fibrillation. Continue diltiazem/Coreg. PLAN FOR TODAY: 1. Admit as inpatient. 2. FUO workup 3. Right ankle arthrocentesis. 4. Preexisting medical condition management as above. 5. Aggressive physical therapy. AA:carlos Job ID: [id number] Doc ID: [id number] Se Rosen MD [facility]
[2016-05-26] MEDS: RIVAROXABAN 20 MG TABLET PO SCH (17:12)
[2016-05-26] MEDS: DILTIAZEM 240 MG CAP.XL.24H PO SCH (20:29)
[2016-05-26] MEDS ORDERED: CPAP MACHINE MM SCH (21:00)
[2016-05-27 06:56] LABS: Mean Cell Volume 88.5 fL (80.0-100.0); Mean Corpuscular HGB Conc 32.7 g/dL (31.0-36.0); Platelet Count 286 K/mcL (140-440); RBC 4.58 M/mcL (4.50-5.90); Red Cell Distribution Width 14.2 % (11.5-14.5)
[2016-05-27 07:17] LABS: ALT/SGPT 22 U/l (0-40); Albumin 3.7 gm/dL (3.2-5.2); Albumin/Globulin Ratio 1.4 (1.0-2.3); Alkaline Phosphatase 114 U/L (39-117); Bilirubin,Direct < 0.2 mg/dL (0.0-0.3); Blood Urea Nitrogen 16 mg/dl (8-23); Gamma Glutamyl Transpeptidase 49 U/L (8-61); Magnesium 2.2 mg/dL (1.6-2.5); Phosphorous 3.1 mg/dL (2.7-4.5)
[2016-05-27 07:33] LABS: Band Neutrophils % 5 % (0-10); Basophils % (Manual) 1 % (0-2); Eosinophils % (Manual) 3 % (0-7); Lymphocytes % 23 % (15-49); Monocytes % (Manual) 8 % (1-9); Platelet Estimate NORMAL (NORMAL); RBC Morphology NORMAL (NORMAL); Segmented Neutrophils % 58 % (38-78)
[2016-05-27] MEDS ORDERED: FUROSEMIDE 40 MG/4 ML VIAL IV SCH (09:00)
--- NOTE | 2016-05-27 10:03 | Cat Scan Report ---
CLINICAL INFORMATION: Ankle pain and erythema evaluate for septic arthritis COMPARISON: Plain films 05/16/2016. TECHNIQUE: 1.25 helical slices were obtained from the distal one half of the tibia and fibula through the mid foot. Following reconstruction, sagittal, coronal axial reformatted images were processed and reviewed in bone and soft tissue windows.. FINDINGS: There are multiple (greater than seven) small intra-articular loose bodies in the medial and lateral of the ankle mortise is range up to 3.2 mm. There does not appear to be excessive fluid within the joint that would be supportive of septic arthritis. There is no specific radiographic evidence of osteomyelitis. Mild beaking from the dorsal cortex talar neck may predispose to anterior impingement. The talocalcaneal joint is unremarkable. There is minor ossification of both the Achilles and plantar tendon insertion on the calcaneus. There is moderate subcutaneous soft tissue thickening likely cellulitis - particularly on the medial side. IMPRESSION: 1. No CT evidence for either septic arthritis or osteomyelitis. There is periarticular subcutaneous soft tissue thickening compatible with cellulitis. 2. Multiple small loose bodies in the ankle mortise, ranging up to 3.5 mm, with associated moderate degeneration. 3. Beaking from the dorsal cortex of the talar neck which may predispose to anterior ankle impingement Interpreted and Authenticated by: Favian Yepez 05/27/16
--- NOTE | 2016-05-27 11:31 | Ultrasound Report ---
CLINICAL INFORMATION: Right ankle pain and swelling. Evaluate for effusion. COMPARISON: None. FINDINGS: No effusions are identified. There is diffuse subcutaneous fluid which likely indicates cellulitis in this particular clinical scenario. No abscess IMPRESSION: Diffuse cellulitis. No ankle effusion is identified. No evidence of soft tissue abscess Interpreted and Authenticated by: Favian Yepez 05/27/16
[2016-05-27] MEDS: LISINOPRIL 10 MG TABLET PO SCH ×2 (12:11→20:00)
[2016-05-27] MEDS: HYDROCHLOROTHIAZIDE 25 MG TABLET PO SCH (12:12)
[2016-05-27] MEDS: CARVEDILOL 12.5 MG TABLET PO SCH (12:12)
[2016-05-27] MEDS: Budesonide/Formoterol Fumarate [Symbicort 160-4.5 MCG] Inhaler INH SCH ×2 (12:15→20:00)
[2016-05-27] MEDS: RIVAROXABAN 20 MG TABLET PO SCH (16:12)
--- NOTE | 2016-05-27 18:55 | Internal Med Progress Note ---
Medical - PN: Subj Patient information: Note initiated : 05/27/16 at 6:55 pm Service Date, if different from initiated Date: [] Patient: Jessica Lemus 76 y/o M admitted on 05/26/16 for Weakness. Chief Complaint: [] Interval history: 05/26- patient admitted with fever and weakness/systemic inflammatory response syndrome. Unclear etiology. CT abdomen and pelvis unremarkable. Influenza negative. CBC/biochemical profile unyielding. UA unremarkable. Cultures negative so far. Reviewed CT chest from recent admission and end of April for similar symptoms. All tests were unremarkable including cultures. No evidence of chest infiltrates during this admission. Extensive workup ordered to include LINDA panel/rheumatoid factor, Mycobacterium,sputum cultures. 05/27- normal ESR, CRP 7.6. white count 4.9. pro-calcitonin 0.05 suggestive against a bacterial process. hIV negative. mycoplasma/strep pneumo negative. Mycobacterium TB/Shawn-Landa virus pending , arthrocentesis no fluid could be obtained for eval, CT right ankleno evidence of osteomyelitis/septic arthritis, cellulitis noted. - Constitutional Vitals: Vital Signs Temp Pulse Resp BP Pulse Ox 98.2 F 81 20 155/81 95 05/27/16 17:02 05/27/16 12:00 05/27/16 17:02 05/27/16 17:02 05/27/16 17:02 Period Temp Pulse Resp BP Sys/Gale Pulse Ox Last 24 Hr 97.1 F-98.4 F 50-81 14-24 118-159/70-90 94-98 Intake and Output 05/27/16 05/27/16 05/27/16 05:59 13:59 21:59 Intake Total 465 / 465 1660 / 1660 1520 / 1520 Output Total 600 / 600 400 / 400 725 / 725 Balance -135 / -135 1260 / 1260 795 / 795 Weight 266 lb Patient Weight 05/28/16 05:59 Weight 266 lb Intake & Output: Intake & Output 05/27/16 05/27/16 05/27/16 05:59 13:59 21:59 Intake Total 465 / 465 1660 / 1660 1520 / 1520 Output Total 600 / 600 400 / 400 725 / 725 Balance -135 / -135 1260 / 1260 795 / 795 Weight 266 lb Intake: Oral 465 / 465 1660 / 1660 1520 / 1520 Output: Void Amount 600 / 600 400 / 400 725 / 725 Other: Meal Lunch Dinner Percent of Meal Consumed 100% 100% Feeding Ability Independent Independent # Voids 1 # Bowel Movements 1 1 General appearance: no acute distress, obese Exam: Feels minimally short of breath however able to talk in full sentences Persistent right ankle swelling Bilateral lower extremitylymphedema/stasis dermatitis changes Right anterolateral scalp3 x 3 mm raised lesion No anxiety nondistended abdomen Medical - PN: Obj Da - Labs CBC & Chem 7: 05/28/16 05:35 05/28/16 05:35 Labs: Abnormal Lab Results 05/27/16 05/27/16 05:05 05:05 Hgb 13.3 L Hct 40.5 L Chloride 93 L Calcium 8.2 L Meds: Medications Acetaminophen (Tylenol) 1,000 mg PO Q4-6HP PRN PRN Reason: Pain Albuterol/Ipratropium (Duoneb) 3 ml NEB Q4HP PRN PRN Reason: Shortness Of Breath Last Admin: 05/26/16 11:14 Dose: 3 ml Carvedilol (Coreg) 12.5 mg PO DAILY [facility] Last Admin: 05/27/16 12:12 Dose: 12.5 mg Diltiazem HCl (Cardizem Cd) 240 mg PO [facility] Last Admin: 05/26/16 20:29 Dose: 240 mg Furosemide (Lasix) 40 mg IV DAILY [facility] Last Admin: 05/27/16 12:11 Dose: 40 mg Hydrochlorothiazide (Oretic) 25 mg PO DAILY [facility] Last Admin: 05/27/16 12:12 Dose: 25 mg Lisinopril (Zestril) 30 mg PO BID [facility] Last Admin: 05/27/16 12:11 Dose: 30 mg Budesonide/Formoterol Fumarate [Symbicort 160-4.5 Mcg] Inhaler 2 dose INH BID [facility] Last Admin: 05/27/16 12:15 Dose: 2 dose Rivaroxaban (Xarelto) 20 mg PO [facility] Last Admin: 05/27/16 16:12 Dose: 20 mg Tramadol HCl (Ultram) 50 mg PO Q4HP PRN PRN Reason: Breakthrough Pain Medical - PN: A/P - Time Spent With Patient Total time spent is greater than 50% in coordination of care (as documented) at patient's floor/unit and/or counseling patient: 25 - 35 minutes (1) SIRS (systemic inflammatory response syndrome) Status: Acute Assessment and plan: * Systemic inflammatory response syndrome with a fever of unknown origin- extensive workup so far unremarkable. autoimmune workup awaited. RF negative. ESR 41 consistent with advanced age. CRP 7.6. Await LINDA panel. No signs of infectious focus. * Severe weakness-PT OT. * history of CHF-rule out acute decompensation. Chest imaging. * hypertension continue FLORENCIA inhibitor/diltiazem/Thiazide * anticoagulation on rivaroxaban * Atrial fibrillation rate controlled on Coreg/diltiazem * History of obstructive sleep apnea on CPAP plan * chest imaging * Await LINDA panel/Mycobacterium/Legionella * Continue diuresis * pre-existing medical condition management as prior * Aggressive physical therapy * Consider SNF placement in light of deconditioning Current Visit: No Medical - PN: Qual - VTE Deep Vein Thrombosis/Pulmonary Embolism Present on Admission: No
[2016-05-27] MEDS: DILTIAZEM 240 MG CAP.XL.24H PO SCH (20:00)
[2016-05-28 07:09] LABS: Mean Cell Volume 84.7 fL (80.0-100.0); Mean Corpuscular HGB Conc 34.8 g/dL (31.0-36.0); Mean Corpuscular Hemoglobin 29.5 pg (26.0-34.0); Platelet Count 293 K/mcL (140-440); RBC 4.49 M/mcL (4.50-5.90)
[2016-05-28 07:44] LABS: ALT/SGPT 26 U/l (0-40); Albumin 3.5 gm/dL (3.2-5.2); Albumin/Globulin Ratio 1.3 (1.0-2.3); Alkaline Phosphatase 110 U/L (39-117); Bilirubin,Direct < 0.2 mg/dL (0.0-0.3); Blood Urea Nitrogen 21 mg/dl (8-23); Gamma Glutamyl Transpeptidase 48 U/L (8-61); Magnesium 2.2 mg/dL (1.6-2.5); Phosphorous 3.3 mg/dL (2.7-4.5); Uric Acid 7.5 mg/dL (2.5-8.0)
--- NOTE | 2016-05-28 08:00 | XRay Report ---
CLINICAL INFORMATION: CHF COMPARISON: 05/25/2016 FINDINGS: Moderate cardiomegaly is increased slightly. Pacemaker leads in stable satisfactory position. Mediastinum is normal. Upper lobe pulmonary vessels are slightly distended compared to prior study. There is no edema. Minor atelectasis noted in the right base. No effusion IMPRESSION: Borderline CHF or volume overload. Interpreted and Authenticated by: Favian Yepez 05/28/16
[2016-05-28] MEDS ORDERED: FUROSEMIDE 40 MG/4 ML VIAL IV ONE (08:32)
[2016-05-28 08:46] LABS: Band Neutrophils % 5 % (0-10); Eosinophils % (Manual) 5 % (0-7); Lymphocytes % 34 % (15-49); Monocytes % (Manual) 14 % (1-9); Platelet Estimate NORMAL (NORMAL); RBC Morphology NORMAL (NORMAL); Segmented Neutrophils % 41 % (38-78)
[2016-05-28] MEDS: CARVEDILOL 12.5 MG TABLET PO SCH (09:35)
[2016-05-28] MEDS: Budesonide/Formoterol Fumarate [Symbicort 160-4.5 MCG] Inhaler INH SCH ×2 (09:35→21:11)
[2016-05-28] MEDS: LISINOPRIL 10 MG TABLET PO SCH ×2 (09:35→21:08)
[2016-05-28] MEDS: HYDROCHLOROTHIAZIDE 25 MG TABLET PO SCH (09:35)
--- NOTE | 2016-05-28 09:56 | Internal Med Progress Note ---
Medical - PN: Subj Patient information: Note initiated : 05/28/16 at 9:54 am Service Date, if different from initiated Date: [] Patient: Jessica Lemus 76 y/o M admitted on 05/26/16 for Weakness. Chief Complaint: [] Interval history: 05/26- patient admitted with fever and weakness/systemic inflammatory response syndrome. Unclear etiology. CT abdomen and pelvis unremarkable. Influenza negative. CBC/biochemical profile unyielding. UA unremarkable. Cultures negative so far. Reviewed CT chest from recent admission and end of April for similar symptoms. All tests were unremarkable including cultures. No evidence of chest infiltrates during this admission. Extensive workup ordered to include LINDA panel/rheumatoid factor, Mycobacterium,sputum cultures. 05/27- normal ESR, CRP 7.6. white count 4.9. pro-calcitonin 0.05 suggestive against a bacterial process. hIV negative. mycoplasma/strep pneumo negative. Mycobacterium TB/Shawn-Landa virus pending , arthrocentesis no fluid could be obtained for eval, CT right ankleno evidence of osteomyelitis/septic arthritis, cellulitis noted. 05/28- patient clinically better. Echocardiogram/head CT pending. no overnight fever chills nausea vomiting. Persistent weakness. Shortness of breath. Chest x-ray shows mild CHF. On diuretics. continue physical therapy. patient has been afebrile over the last 48 hours. tachycardia has resolved. saturations 95 % on room air. No active concerns per nursing staff - Constitutional Vitals: Vital Signs Temp Pulse Resp BP Pulse Ox 97.2 F L 69 20 163/90 95 05/28/16 08:16 05/28/16 04:00 05/28/16 08:16 05/28/16 08:16 05/28/16 08:16 Period Temp Pulse Resp BP Sys/Gale Pulse Ox Last 24 Hr 96.7 F-98.4 F 69-81 16-20 120-163/60-93 94-96 Intake and Output 05/27/16 05/28/16 05/28/16 21:59 05:59 13:59 Intake Total 1520 / 1520 375 / 375 Output Total 725 / 725 1276 / 1276 275 / 275 Balance 795 / 795 -901 / -901 -275 / -275 Weight 264 lb Intake & Output: Intake & Output 02/03/0205/28/16 05/28/16 21:59 05:59 13:59 Intake Total 1520 / 1520 375 / 375 Output Total 725 / 725 1276 / 1276 275 / 275 Balance 795 / 795 -901 / -901 -275 / -275 Weight 264 lb Intake: Oral 1520 / 1520 375 / 375 Output: Void Amount 725 / 725 1275 / 1275 275 / 275 # of times incontinent of 1 urine Other: Meal Dinner Percent of Meal Consumed 100% Feeding Ability Independent # Voids 1 # Bowel Movements 1 General appearance: cooperative, no acute distress, obese Exam: improved SOB lymphedema improved No anxiety Right anterolateral forehead 3 mm skin lesion Medical - PN: Obj Da - Labs CBC & Chem 7: 05/28/16 05:35 05/28/16 05:35 Labs: Abnormal Lab Results 05/28/16 05/28/16 05/27/16 05:35 05:35 05:05 WBC 4.2 L RBC 4.49 L Hgb 13.3 L Hct 38.1 L Monocytes % (Manual) 14 H Chloride 93 L Calcium 8.2 L 8.2 L 05/27/16 05:05 WBC RBC Hgb 13.3 L Hct 40.5 L Monocytes % (Manual) Chloride Calcium Meds: Medications Acetaminophen (Tylenol) 1,000 mg PO Q4-6HP PRN PRN Reason: Pain Albuterol/Ipratropium (Duoneb) 3 ml NEB Q4HP PRN PRN Reason: Shortness Of Breath Last Admin: 05/26/16 11:14 Dose: 3 ml Carvedilol (Coreg) 12.5 mg PO DAILY [facility] Last Admin: 05/28/16 09:35 Dose: 12.5 mg Diltiazem HCl (Cardizem Cd) 240 mg PO HS [facility] Last Admin: 05/27/16 20:00 Dose: 240 mg Furosemide (Lasix) 40 mg IV BID [facility] Hydrochlorothiazide (Oretic) 25 mg PO DAILY [facility] Last Admin: 05/28/16 09:35 Dose: 25 mg Lisinopril (Zestril) 30 mg PO BID [facility] Last Admin: 05/28/16 09:35 Dose: 30 mg Budesonide/Formoterol Fumarate [Symbicort 160-4.5 Mcg] Inhaler 2 dose INH BID [facility] Last Admin: 05/28/16 09:35 Dose: 2 dose Rivaroxaban (Xarelto) 20 mg PO ACS [facility] Last Admin: 05/27/16 16:12 Dose: 20 mg Tramadol HCl (Ultram) 50 mg PO Q4HP PRN PRN Reason: Breakthrough Pain Medical - PN: A/P - Time Spent With Patient Total time spent is greater than 50% in coordination of care (as documented) at patient's floor/unit and/or counseling patient: 25 - 35 minutes (1) SIRS (systemic inflammatory response syndrome) Status: Acute Assessment and plan: * Systemic inflammatory response syndrome with a fever of unknown origin- no fever since last 48 hours. extensive infectious workup so far unremarkable. await LINDA panel. ESR nyielding. CRP 7.6. * Acute decompensated heart failure-echocardiogram. Start diuresis * Forehead skin lesion-scheduled outpatient dermatology appointment for biopsy * Severe weakness-continue aggressive physical therapy. consider SNF placement * Hypertension continue FLORENCIA inhibitor/diltiazem/Thiazide * Anticoagulation on rivaroxaban * Atrial fibrillation rate controlled on Coreg/diltiazem * History of obstructive sleep apnea on CPAP plan * CT head/echocardiogram * Await LINDA panel/Mycobacterium/Legionella * Continue diuresis/limb elevation * pre-existing medical condition management as prior * Consider SNF placement in light of deconditioning * outpatient dermatology appointment for forehead skin lesion biopsy Current Visit: No Medical - PN: Qual - VTE Deep Vein Thrombosis/Pulmonary Embolism Present on Admission: No
[2016-05-28] MEDS: RIVAROXABAN 20 MG TABLET PO SCH (17:55)
--- NOTE | 2016-05-28 19:45 | Cat Scan Report ---
CLINICAL INFORMATION: Weakness COMPARISON: 12/15/2014 TECHNIQUE: 2.5 mm helical slices were obtained in the skull base to vertex. Following reconstruction, axial reformatted images were reviewed at bone and parenchymal windows. FINDINGS: The ventricles, sulci, fissures, and cisterns are symmetrically enlarged bowel mild age-related atrophy - no extra-axial fluid collections or masses identified. Chronic ischemic changes in the cerebral white matter seen as before. 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 There is no acute cerebral hemorrhage mass effect edema or other acute finding. IMPRESSION: Moderate atrophy and chronic ischemic changes in the cerebral white matter and small remote infarcts all stable from previous 2014 study. No acute disease Interpreted and Authenticated by: Favian Yepez 05/28/16
[2016-05-28] MEDS: DILTIAZEM 240 MG CAP.XL.24H PO SCH (21:08)
[2016-05-28] MEDS: FUROSEMIDE 40 MG/4 ML VIAL IV SCH (21:09)
[2016-05-29 07:10] LABS: Mean Cell Volume 85.3 fL (80.0-100.0); Mean Corpuscular HGB Conc 34.6 g/dL (31.0-36.0); Mean Corpuscular Hemoglobin 29.5 pg (26.0-34.0); Platelet Count 318 K/mcL (140-440); RBC 4.58 M/mcL (4.50-5.90)
[2016-05-29 07:52] LABS: ALT/SGPT 37 U/l (0-40); Albumin 3.6 gm/dL (3.2-5.2); Albumin/Globulin Ratio 1.2 (1.0-2.3); Alkaline Phosphatase 117 U/L (39-117); Bilirubin,Direct < 0.2 mg/dL (0.0-0.3); Blood Urea Nitrogen 25 mg/dl (8-23); Gamma Glutamyl Transpeptidase 53 U/L (8-61); Magnesium 2.2 mg/dL (1.6-2.5); Phosphorous 3.9 mg/dL (2.7-4.5); Uric Acid 7.8 mg/dL (2.5-8.0)
--- NOTE | 2016-05-29 07:56 | Echocardiogram Report ---
ECHOCARDIOGRAM: 2-D and M-mode echocardiography with cardiac Doppler and color flow imaging were performed with a TosMtoVa Aplio MX. (See accompanying M-mode and Doppler reports for quantitation.) 2D and M-mode echocardiography with cardiac Doppler and color flow imaging were performed with a TosMtoVa Aplio MX. INDICATION: Shortness of breath. The study was technically difficult for anatomic reasons. Overall size of the RA, RV, LV, and aortic root appeared normal. LV endocardium was very difficult to visualize, though wall thickness appeared mildly increased and systolic performance appeared grossly in the low normal to borderline reduced range. Estimated ejection fraction is 50 percent. The LA appeared moderately enlarged. The aortic valve appeared trileaflet and normal. There was no evidence for aortic stenosis or aortic regurgitation by Doppler interrogation. The mitral and tricuspid valves appear unremarkable. Doppler interrogation of LV inflow disclosed a monophasic spectral dispersion pattern related to absent AV synchrony. Mitral regurgitation, probably mild (1+), was noted. The pulmonic valve showed absent \\"a\\" wave in the absence of AV synchrony. Pulmonary artery acceleration time appeared normal. There was no evidence for pulmonic stenosis. Pulmonic regurgitation, probably trivial, and tricuspid regurgitation, probably mild (1+), were noted. No intracardiac shunting was appreciated. There was no evidence of pericardial effusion. The IVC was somewhat difficult to image, though did not appear dilated. Atrial fibrillation with a moderate response and a possible artificial ventricular pacemaker escape was present. CONCLUSION: Technically difficult study for anatomic reasons. Mild concentric LVH with grossly low normal to borderline reduced systolic performance. Mitral regurgitation, probably mild (1+), with moderate LA enlargement. (See accompany M-mode and Doppler reports for quantitation) ECHOCARDIOGRAPHY M-MODE CALCULATIONS: HT: 6 feet 1 inch WT: 264 BSA: 2.42 NORMALS AORTA: AORTIC ROOT 3.2 2.0-3.7 cm LEFT ATRIUM 5.2 1.9-4.0 cm MITRAL VALVE: EXCURSION 2.1 1.9-2.7 cm EPSS 0.4 <0.5 cm LT VENTRICLE: LVID (ED) 5.3 3.5-5.7 cm LVID (ES) 3.2 SEPTAL THICKNESS 1.4 0.6-1.1 cm SEPTAL EXCURSION 0.4 0.3-0.8 cm LVPW THICKNESS 1.1 0.6-1.1 cm LVPW EXCURSION 1.3 0.9-1.4 cm MINOR AXIS FS 40% 25%-40% RT VENTRICLE: RVID (ED) 1.8 0.9-2.6 cm(up to 3cm if LLD) QUALITATIVE DOPPLER FLOW STUDIES MITRAL VALVE MR, probably mild (1+) AORTIC VALVE AR, probably trivial TRICUSPID VALVE TR, probably mild (1+) PULMONIC VALVE KS, probably trivial QUANTITATIVE DOPPLER FLOW STUDIES SAMPLE SITES VELOCITIES PEAK PRESSURE VALVE AREA and/or VALVE WINDOW (PEAK,M/SEC) DROP (GRADIENT) PRESSURE HALF-TIME MV (Diastole) 0.6 MV (Systole) 5.4 AO (Diastole) 1.3 AO (Systole) 1.4 TV (Systole) 2.7 PV (Systole) 0.8 PV (Diastole) 1.0 LWG:zackery Job ID: [id number] Doc ID: [id number] Frank Anne MD
[2016-05-29 09:26] LABS: Band Neutrophils % 2 % (0-10); Basophils % (Manual) 1 % (0-2); Eosinophils % (Manual) 2 % (0-7); Lymphocytes % 36 % (15-49); Monocytes % (Manual) 10 % (1-9); Platelet Estimate NORMAL (NORMAL); RBC Morphology NORMAL (NORMAL); Segmented Neutrophils % 49 % (38-78)
[2016-05-29] MEDS: LISINOPRIL 10 MG TABLET PO SCH (09:34)
[2016-05-29] MEDS: CARVEDILOL 12.5 MG TABLET PO SCH (09:34)
[2016-05-29] MEDS: FUROSEMIDE 40 MG/4 ML VIAL IV SCH ×2 (09:34→09:39)
[2016-05-29] MEDS: HYDROCHLOROTHIAZIDE 25 MG TABLET PO SCH (09:34)
[2016-05-29] MEDS: Budesonide/Formoterol Fumarate [Symbicort 160-4.5 MCG] Inhaler INH SCH (09:35)
--- NOTE | 2016-05-29 11:55 | Discharge Summary ---
Medical - DS: Prov Patient information: Note initiated : 05/29/16 at 11:45 am Service Date, if different from initiated Date: [] Patient: Jessica Lemus 76 y/o M admitted on 05/26/16 for Weakness/Fever of Unknown Origin. Chief Complaint: [] Date of admission: 05/26/16 09:02 Discharge date: 05/29/16 Primary care physician: [f_Reg Prim Care Provider] Medical - DS: Meds - Discharge Medications Active and Home Medications: Home Medications rivaroxaban 20 mg tablet 20 mg PO ACS tab 12/14/14 [History Confirmed 05/26/16 Last Taken 05/25/16 08:00] Diltiazem HCl [Cartia Xt] 240 mg PO HS 12/15/14 [History Confirmed 05/26/16 Last Taken 05/25/16 21:00] Lisinopril [Zestril] 30 mg PO BID 12/15/14 [History Confirmed 05/26/16 Last Taken 05/25/16 08:00] hydrochlorothiazide 12.5 mg capsule 25 mg PO QDAY #90 cap 10/01/15 [Rx Confirmed 05/26/16 Last Taken 05/25/16 08:00] carvedilol 12.5 mg tablet 12.5 mg PO DAILY 90 Days 10/21/15 [History Confirmed 05/26/16 Last Taken 05/25/16 08:00] furosemide 20 mg tablet 20 mg PO DAILY 90 Days 10/21/15 [History Confirmed 05/26 Last Taken 05/25/16 08:00] tramadol 50 mg tablet 50 mg PO Q4H PRN #60 tab 12/08/15 [Rx Confirmed 05/26/16 Last Taken 05/12/16 50 MG] budesonide-formoterol HFA 160 mcg-4.5 mcg/actuation aerosol inhaler 2 inh INHALATION Q12H #10.2 g 04/12/16 [Rx Confirmed 05/26/16 Last Taken 05/12/16 2 INH] Acetaminophen [Tylenol] 1,000 mg PO Q4-6HP PRN 05/13/16 [History Confirmed 05/26 Last Taken 05/12/16 1000 mg] CPAP machine 12 cm HS 05/14/16 [History Confirmed 05/26/16 Last Taken 05/12/16] Medical - DS: Hosp Hospital course: DISCHARGE DIAGNOSIS * Systemic inflammatory response syndrome with a fever of unknown origin- clinically resolved. No further febrile episodes. extensive infectious workup negative. * Acute decompensated heart failure-echocardiogram 50% EF. responded well to diuretics. Continue Coreg/FLORENCIA inhibitor * Forehead skin lesion-scheduled outpatient dermatology appointment for biopsy * Severe weakness-continue aggressive physical therapy. family requesting discharge home * Hypertension continue FLORENCIA inhibitor/diltiazem/Thiazide * Anticoagulation for CVA prophylaxis on rivaroxaban * Atrial fibrillation rate controlled on Coreg/diltiazem * History of obstructive sleep apnea on CPAP BRIEF HOSPITAL COURSE Mr. Lemus is a 76 year old male admitted with SIRS. 05/26- patient admitted with fever and weakness/systemic inflammatory response syndrome. Unclear etiology. CT abdomen and pelvis unremarkable. Influenza negative. CBC/biochemical profile unyielding. UA unremarkable. Cultures negative so far. Reviewed CT chest from recent admission and end of April for similar symptoms. All tests were unremarkable including cultures. No evidence of chest infiltrates during this admission. Extensive workup ordered to include LINDA panel/rheumatoid factor, Mycobacterium,sputum cultures. 05/27- normal ESR, CRP 7.6. white count 4.9. pro-calcitonin 0.05 suggestive against a bacterial process. hIV negative. mycoplasma/strep pneumo negative. Mycobacterium TB/Shawn-Landa virus pending , arthrocentesis no fluid could be obtained for eval, CT right ankle no evidence of osteomyelitis/septic arthritis , mild superficial cellulitis noted however status post 7 days third generation cephalosporin and hence no further antibiotics instituted. 05/28- patient clinically better. Echocardiogram/head CT pending. no overnight fever chills nausea vomiting. Persistent weakness. Shortness of breath. Chest x-ray shows mild CHF. On diuretics. continue physical therapy. patient has been afebrile over the last 48 hours. tachycardia has resolved. saturations 95 % on room air. No active concerns per nursing staff 05/29-patient doing well. No overnight events. No fever chills nausea vomiting concerns per staff. Echo 50% EF. Extensive workup negative so far including head CT and tests as above. discharging home the detailed discharge instructions as below Discharge diagnosis: SIRS - Time Spent with Patient Total time spent providing and/or coordinating discharge services: Greater than 30 minutes Medical - DS: Exam - Constitutional Vitals: Vital Signs Temp Pulse Resp BP BP Pulse Ox 05/29/16 07:44 95 05/29/16 07:33 97.2 F L 73 14 131/82 97 05/29/16 00:00 97.4 F L 68 20 165/89 97 05/28/16 20:00 97.8 F 63 20 152/84 93 05/28/16 16:00 98.2 F 72 20 141/78 95 05/28/16 12:00 96.4 F L 88 20 143/90 95 Intake and Output 05/28/16 05/29/16 05/29/16 21:59 05:59 13:59 Intake Total 600 / 600 275 / 275 Balance 600 / 600 275 / 275 Intake: Oral 600 / 600 275 / 275 Other: # Voids 1 2 Weight 264 lb General appearance: cooperative, no acute distress Medical - DS: Data Labs on day of discharge: Labs from last 24 hours 05/29/16 05/29/16 05:31 05:31 WBC 4.4 L RBC 4.58 Hgb 13.5 Hct 39.1 L MCV 85.3 MCH 29.5 MCHC 34.6 RDW 13.0 Plt Count 318 MPV 8.6 Total Counted 100 Seg Neutrophils % 49 Band Neutrophils % 2 Lymphocytes % 36 Monocytes % (Manual) 10 H Eosinophils % (Manual) 2 Basophils % (Manual) 1 Platelet Estimate Normal RBC Morphology Normal Sodium 142 Potassium 3.7 Chloride 98 Carbon Dioxide 30 Anion Gap 14.0 BUN 25 H Creatinine 1.1 GFR Calculation 64 Glucose 108 H Uric Acid 7.8 Calcium 8.6 Phosphorus 3.9 Magnesium 2.2 Total Bilirubin 0.4 Direct Bilirubin < 0.2 GGT 53 AST 38 H ALT 37 Alkaline Phosphatase 117 Lactate Dehydrogenase 203 Total Protein 6.6 Albumin 3.6 Globulin 3.0 Albumin/Globulin Ratio 1.2 Triglycerides 127 Preliminary micro results at discharge 05/28/16 11:26 Stool Culture - Preliminary Stool Medical - DS: A/P - Patient/Caregiver Discharge Instructions Activity: increase activity as tolerated Diet: Low Sodium (2gm) Additional Instructions: Follow-up PCP in 5 days ollow-up with cardiology in 1-2 weeks for management of A. fib/CHF I recommend primary care physician to check CBC BMP UA as a posthospital follow- up and Chest x-ray in 1 week. Continue aggressive bowel regimen to prevent constipation Continue fall precautions daily weights measurements and take additional 40 mg Lasix for 3 days if weight gain over 4 pounds at baseline or worsening shortness of breath and call primary care physician if inadequate response to Lasix All meals on chair sitting upright at 90 degrees to prevent aspiration Return to ER if worsening fever chills shortness of breath, diarrhea, bleeding Continue low-sodium diet and activity as advised Discussed importance of medication adherence Please review medication list with patient prior to discharge Please schedule follow-up with PCP/Providers prior to discharge and provide printouts Portions of this chart may have been created with [employer] voice recognition software. Occasional wrong-word or ?sound-like? substitutions may have occurred due to the inherent limitations of voice recognition software. Please read the chart carefully and recognize, using context, where the substitutions have occurred. CC- PCP - Problem Maintenance (1) SIRS (systemic inflammatory response syndrome) Status: Acute - Follow up Plan Follow up with: Ant Alvarez MD [Primary Care Provider] - Disposition: Home, Self-Care Prognosis: Fair Rehab Potential: Fair I certify that the patient requires SNF services: No Overall status at discharge: patient is progressing back to baseline Medical - DS: Qual - VTE Deep Vein Thrombosis/Pulmonary Embolism Present on Admission: No
== END 2016-05-29 13:45 | disposition home or self-care (01) | DRG 864 ==
LOC: ED 22:22 → MEDSUR 22:22
PROVIDERS: ADMIT Internal Medicine; ATTEND Internal Medicine